=== PATIENT | male | born 1990 | race Caucasian/White ===

== ENCOUNTER 2020-11-24 13:40 | Inpatient (IN) | payer BC ==
--- NOTE | 2020-11-24 14:03 | EDM.PDOC ---
ED HPI GENERAL MEDICAL PROBLEM - General Chief Complaint: Respiratory Problem Stated Complaint: COVID+/VOMITING/UNABLE TO URINATE Time Seen by Provider: 11/24/20 13:57 - History of Present Illness INITIAL COMMENTS - FREE TEXT/NARRATIVE: 29-year-old male presents the emergency room with suspected dehydration. Patient was diagnosed with Covid on Sunday he has been coughing and has had a significant decrease in appetite with associated nausea and vomiting for about a week now. He is no longer voiding. He thinks he has been having some low-grade fevers. Patient denies any significant past medical problems except for scolio sis. He is not on any routine medications. The patient works at home he believes he probably caught this from his that is doing better from the illness now that developed symptoms about a week prior to his symptoms starting. - Related Data Allergies Allergy/AdvReac Type Severity Reaction Status Date / Time No Known Allergies Allergy Verified 11/24/20 14:00 Home Meds: Home Meds . [No Known Home Meds] 11/24/20 [History] ED ROS GENERAL - Review of Systems Review Of Systems: See Below Constitutional: Reports: Fever, Malaise, Weakness, Fatigue. Denies: Chills HEENT: Reports: No Symptoms Respiratory: Reports: Cough. Denies: Shortness of Breath, Wheezing, Pleuritic Chest Pain, Sputum Cardiovascular: Denies: Chest Pain, Edema Endocrine: Reports: Fatigue GI/Abdominal: Reports: Nausea, Vomiting. Denies: Abdominal Pain, Constipation : Reports: No Symptoms Musculoskeletal: Reports: Other (He is achy all over) Skin: Reports: No Symptoms Neurological: Reports: No Symptoms Psychiatric: Reports: No Symptoms Hematologic/Lymphatic: Reports: No Symptoms Immunologic: Reports: No Symptoms ED EXAM, GENERAL - Physical Exam Exam: See Below Exam Limited By: No Limitations General Appearance: Alert, No Apparent Distress, Other (He has a frequent cough O2 saturation is between 91 and 95%) Eye Exam: Bilateral Eye: Normal Inspection Ears: Normal External Exam, Normal Canal, Hearing Grossly Normal, Normal TMs Nose: Normal Inspection, Normal Mucosa, No Blood Throat/Mouth: Normal Inspection, Normal Lips, Normal Teeth, Normal Gums, Normal Oropharynx, Normal Voice, No Airway Compromise Head: Atraumatic, Normocephalic Neck: Normal Inspection, Supple, Non-Tender. No: Lymphadenopathy (L), Lymphadenopathy (R) Respiratory/Chest: No Respiratory Distress, Crackles (He has a few crackles noted anteriorly deep breathing triggers his cough) Cardiovascular: Regular Rate, Rhythm, No Edema, No Murmur GI/Abdominal: Normal Bowel Sounds, Soft, Other (Vague discomfort with palpation no rigidity rebound or guarding appreciated) Back Exam: Other (Large well-healed incision from his scoliosis surgery). No: CVA Tenderness (L), CVA Tenderness (R) Extremities: No Pedal Edema Neurological: Alert, Oriented, Normal Cognition Course - Vital Signs Last Recorded V/S: Last Vital Signs Temp 38.1 C 11/24/20 13:55 Pulse 96 11/24/20 13:55 Resp 20 11/24/20 13:55 BP 139/80 11/24/20 13:55 Pulse Ox 92 L 11/24/20 13:55 - Orders/Labs/Meds Orders: Active Orders 24 hr Category Date Time Status CULTURE BLOOD [BC] Stat Lab 11/24/20 14:30 Received CULTURE BLOOD [BC] Stat Lab 11/24/20 14:37 Received Lactated Ringers [Ringers, Lactated] 1,000 ml Med 11/24/20 16:15 Active IV ASDIRECTED Blood Culture x2 Reflex Set [OM.PC] Stat Oth 11/24/20 14:05 Ordered Medication Orders Lactated Ringer's (Ringers, Lactated) 1,000 mls @ 75 mls/hr IV ASDIRECTED CHANDNI Labs: Laboratory Tests 11/24/20 11/24/20 11/24/20 Range/Units 14:04 14:10 14:10 WBC 5.56 (4.23-9.07) K/mm3 RBC 5.37 (4.63-6.08) M/mm3 Hgb 15.6 (13.7-17.5) gm/dl Hct 45.3 (40.1-51.0) % MCV 84.4 (79.0-92.2) fl MCH 29.1 (25.7-32.2) pg MCHC 34.4 (32.2-35.5) g/dl RDW Std Deviation 39.3 (35.1-43.9) fL Plt Count 127 L (163-337) K/mm3 MPV 10.8 (9.4-12.3) fl Neutrophils % (Manual) 65 H (40-60) % Band Neutrophils % 0 (0-10) % Lymphocytes % (Manual) 26 (20-40) % Atypical Lymphs % 0 % Monocytes % (Manual) 7 (2-10) % Eosinophils % (Manual) 0 L (0.8-7.0) % Basophils % (Manual) 0 L (0.2-1.2) Metamyelocytes % 2 Platelet Estimate Adequate RBC Morph Comment Normal D-Dimer, Quantitative (0.19-0.50) mg/L Sodium 138 (136-145) mEq/L Potassium 3.2 L (3.5-5.1) mEq/L Chloride 98 (98-107) mEq/L Carbon Dioxide 29 (21-32) mEq/L Anion Gap 14.2 (5-15) BUN 14 (7-18) mg/dL Creatinine 1.2 (0.7-1.3) mg/dL Est Cr Clr Drug Dosing 83.39 mL/min Estimated GFR (MDRD) > 60 (>60) mL/min BUN/Creatinine Ratio 11.7 L (14-18) Glucose 88 (70-99) mg/dL Lactic Acid (0.4-2.0) mmol/L Calcium 7.7 L (8.5-10.1) mg/dL Ferritin 1909 H (26-388) ng/ml Total Bilirubin 0.8 (0.2-1.0) mg/dL AST 39 H (15-37) U/L ALT 37 (16-63) U/L Alkaline Phosphatase 58 (46-116) U/L C-Reactive Protein 5.7 H* (<1.0) mg/dL Total Protein 7.4 (6.4-8.2) g/dl Albumin 3.6 (3.4-5.0) g/dl Globulin 3.8 gm/dL Albumin/Globulin Ratio 1.0 (1-2) 11/24/20 11/24/20 Range/Units 14:10 15:17 WBC (4.23-9.07) K/mm3 RBC (4.63-6.08) M/mm3 Hgb (13.7-17.5) gm/dl Hct (40.1-51.0) % MCV (79.0-92.2) fl MCH (25.7-32.2) pg MCHC (32.2-35.5) g/dl RDW Std Deviation (35.1-43.9) fL Plt Count (163-337) K/mm3 MPV (9.4-12.3) fl Neutrophils % (Manual) (40-60) % Band Neutrophils % (0-10) % Lymphocytes % (Manual) (20-40) % Atypical Lymphs % % Monocytes % (Manual) (2-10) % Eosinophils % (Manual) (0.8-7.0) % Basophils % (Manual) (0.2-1.2) Metamyelocytes % Platelet Estimate RBC Morph Comment D-Dimer, Quantitative 0.42 (0.19-0.50) mg/L Sodium (136-145) mEq/L Potassium (3.5-5.1) mEq/L Chloride (98-107) mEq/L Carbon Dioxide (21-32) mEq/L Anion Gap (5-15) BUN (7-18) mg/dL Creatinine (0.7-1.3) mg/dL Est Cr Clr Drug Dosing mL/min Estimated GFR (MDRD) (>60) mL/min BUN/Creatinine Ratio (14-18) Glucose (70-99) mg/dL Lactic Acid 1.3 (0.4-2.0) mmol/L Calcium (8.5-10.1) mg/dL Ferritin (26-388) ng/ml Total Bilirubin (0.2-1.0) mg/dL AST (15-37) U/L ALT (16-63) U/L Alkaline Phosphatase (46-116) U/L C-Reactive Protein (<1.0) mg/dL Total Protein (6.4-8.2) g/dl Albumin (3.4-5.0) g/dl Globulin gm/dL Albumin/Globulin Ratio (1-2) Meds: Medications Generic Name Dose Route Start Last Admin Trade Name Freq PRN Reason Stop Dose Admin Lactated Ringer's 1,000 mls @ 75 mls/hr 11/24/20 16:15 Ringers, Lactated IV ASDIRECTED CHANDNI Discontinued Medications Generic Name Dose Route Start Last Admin Trade Name Freq PRN Reason Stop Dose Admin Lactated Ringer's 500 mls @ 500 mls/hr 11/24/20 14:26 11/24/20 15:40 Ringers, Lactated IV 11/24/20 15:25 75 mls/hr .BOLUS ONE Infusion Potassium Chloride 40 meq 11/24/20 16:07 11/24/20 16:16 Potassium Chloride 20 Meq Tab.Er PO 11/24/20 16:08 40 meq ONETIME ONE Administration - Re-Assessments/Exams Free Text/Narrative Re-Assessment/Exam: 11/24/20 16:32 The patient was watched for while awaiting labs and his sats dropped into the upper 80s 87-88% range and then come back up and then come back down. Patient was placed on supplemental oxygen and feels much better with this. I discussed the situation with Dr. Zamorano our hospitalist who kindly will accept the patient will continue the fluids at 75 cc an hour. His lactic acid was 1.3. Albeit the patient met sepsis criteria the acute situation was thought to be some dehydration due to the Covid infection and thus was not aggressively treated with fluids. I am concerned about this patient as he has some restrictive lung disease with his scoliosis. Departure - Departure Time of Disposition: 16:31 Disposition: Admitted As Inpatient 64 Clinical Impression: COVID-19, Pneumonia due to 2019 novel coronavirus, Hypoxia - Discharge Information Referrals: PCP,None [Primary Care Provider] - Forms: ED Department Discharge Sepsis Event Note (ED) - Focused Exam Vital Signs: Vital Signs Temp Pulse Resp BP Pulse Ox 11/24/20 13:55 38.1 C 96 20 139/80 92 L - My Orders Last 24 Hours: My Active Orders 11/24/20 14:05 Blood Culture x2 Reflex Set [OM.PC] Stat 11/24/20 14:30 CULTURE BLOOD [BC] Stat 11/24/20 14:37 CULTURE BLOOD [BC] Stat 11/24/20 16:15 Lactated Ringers [Ringers, Lactated] 1,000 ml IV ASDIRECTED - Assessment/Plan Last 24 Hours: My Active Orders 11/24/20 14:05 Blood Culture x2 Reflex Set [OM.PC] Stat 11/24/20 14:30 CULTURE BLOOD [BC] Stat 11/24/20 14:37 CULTURE BLOOD [BC] Stat 11/24/20 16:15 Lactated Ringers [Ringers, Lactated] 1,000 ml IV ASDIRECTED
[2020-11-24] MEDS ORDERED: Lactated Ringers 500 ML IV ONE (14:26)
--- NOTE | 2020-11-24 14:41 | CR ---
Chest: Portable view of the chest was obtained. Comparison: No prior chest imaging is available. Heart size and mediastinum are within normal limits for portable technique. Scoliosis fixation rods are present. Patchy areas of increased density are seen on both sides of the chest. Impression: 1. Patchy areas of increased density on both sides of the chest compatible with diffuse Covid pneumonia. 2. Scoliosis fixation rods. Diagnostic code #3
[2020-11-24] MEDS ORDERED: Potassium Chloride 20 MEQ Tab.ER PO ONE (16:07)
[2020-11-24] MEDS ORDERED: Lactated Ringers 1,000 ML IV SCH (16:15)
[2020-11-24] MEDS ORDERED: Acetaminophen 325 MG Tab PO PRN (17:12)
[2020-11-24] MEDS ORDERED: Promethazine 12.5 MG in Sodium Chloride 0.9% 50 ML IV PRN (17:12)
[2020-11-24] MEDS ORDERED: Albuterol/Ipratropium 3.0-0.5 MG/3 ML Neb Soln NEB PRN (17:12)
[2020-11-24] MEDS ORDERED: Morphine 2 MG/ML SYRINGE IVPUSH PRN (17:12)
[2020-11-24] MEDS ORDERED: REMDESIVIR 200 MG in Sodium Chloride 0.9% 250 ML IV ONE ×2 (17:19→18:15)
[2020-11-24] MEDS ORDERED: traMADol 50 MG Tab PO PRN (17:23)
[2020-11-24] MEDS ORDERED: hydrALAZINE 20 MG/ML SDV IVPUSH PRN (17:23)
[2020-11-24] MEDS ORDERED: cefTRIAXone 2 GM in Sodium Chloride 0.9% 100 ML IV SCH (17:30)
[2020-11-24] MEDS ORDERED: NS + KCl 20mEq/L 1,000 ML IV SCH (17:30)
--- NOTE | 2020-11-24 17:34 | PCM.HP.2 ---
H&P History of Present Illness - General Date of Service: 11/24/20 Admit Problem/Dx: Admission Diagnosis/Problem Admission Diagnosis/Problem Hypoxia Source of Information: Patient, Other (Chart) - History of Present Illness Initial Comments - Free Text/Narative: Patient is a 29-year-old male without a significant the past medical history who presented to the ER with cough and shortness of breath. he has been having poor appetite, nausea, vomiting and malaise for about a week. Patient had a positive COVID-19 test on Sunday. His had a positive COVID-19 tested recently. In the ER, he was found to have low oxygen desaturation 87 to 88%. he has a low urine output. Normal saline bolus of 500 cc was given in the ER. Chest x-ray was performed showing bilateral infiltrates compatible with the Covid pneumonia. - Related Data Allergies/Adverse Reactions: Allergies Allergy/AdvReac Type Severity Reaction Status Date / Time No Known Allergies Allergy Verified 11/24/20 14:00 Home Medications: Home Meds . [No Known Home Meds] 11/24/20 [History] Past Medical History HEENT History: Reports: Impaired Vision Respiratory History: Reports: Other (See Below) Other Respiratory History: partially collapsed lung r/t scoliosis Genitourinary History: Reports: Renal Calculus Musculoskeletal History: Reports: Other (See Below) Other Musculoskeletal History: scholiosis - Infectious Disease History Infectious Disease History: Reports: Chicken Pox, Novel Coronavirus - Past Surgical History HEENT Surgical History: Reports: Oral Surgery Musculoskeletal Surgical History: Reports: Other (See Below) Other Musculoskeletal Surgeries/Procedures:: spinal fusion (2000) Social & Family History - Family History Family Medical History: No Pertinent Family History (Denies genetic diseases in family) - Tobacco Use Tobacco Use Status *Q: Never Tobacco User Second Hand Smoke Exposure: No - Caffeine Use Caffeine Use: Reports: None - Recreational Drug Use Recreational Drug Use: No H&P Review of Systems - Review of Systems: Review Of Systems: See Below General: Reports: Malaise HEENT: Reports: No Symptoms Pulmonary: Reports: Shortness of Breath, Cough Cardiovascular: Reports: No Symptoms Gastrointestinal: Reports: Nausea, Vomiting Genitourinary: Reports: Other (Low urine output) Musculoskeletal: Reports: No Symptoms Skin: Reports: No Symptoms Psychiatric: Reports: No Symptoms Neurological: Reports: No Symptoms Hematologic/Lymphatic: Reports: No Symptoms Immunologic: Reports: No Symptoms Exam - Exam Exam: See Below - Vital Signs Vital Signs: Last Vital Signs Temp 38.3 C H 11/24/20 17:00 Pulse 88 11/24/20 17:00 Resp 20 11/24/20 17:00 BP 114/73 11/24/20 17:00 Pulse Ox 96 11/24/20 17:00 Weight: 95.118 kg - Exam General: Alert, Oriented, Cooperative HEENT: Conjunctiva Clear, EOMI, Pupils Equal, Pupils Reactive Neck: Supple, +2 Carotid Pulse wo Bruit, Full Range of Motion Lungs: Crackles (Bibasilar) Cardiovascular: Regular Rate, Regular Rhythm, Normal S1, Normal S2 GI/Abdominal Exam: Normal Bowel Sounds, Soft, Non-Tender, No Organomegaly Back Exam: Other (Scoliosis) Extremities: Normal Inspection, Normal Range of Motion, Non-Tender, No Pedal Edema Skin: Warm, Dry, Intact Neurological: Strength Equal Bilateral, Normal Speech, Normal Tone, Sensation Intact Neuro Extensive - Mental Status: Alert, Oriented x3, Normal Mood/Affect Psychiatric: Normal Affect, Normal Mood - Patient Data Lab Results Last 24 hrs: Laboratory Results - last 24 hr 11/24/20 11/24/20 11/24/20 Range/Units 14:04 14:10 14:10 WBC 5.56 (4.23-9.07) K/mm3 RBC 5.37 (4.63-6.08) M/mm3 Hgb 15.6 (13.7-17.5) gm/dl Hct 45.3 (40.1-51.0) % MCV 84.4 (79.0-92.2) fl MCH 29.1 (25.7-32.2) pg MCHC 34.4 (32.2-35.5) g/dl RDW Std Deviation 39.3 (35.1-43.9) fL Plt Count 127 L (163-337) K/mm3 MPV 10.8 (9.4-12.3) fl Neutrophils % (Manual) 65 H (40-60) % Band Neutrophils % 0 (0-10) % Lymphocytes % (Manual) 26 (20-40) % Atypical Lymphs % 0 % Monocytes % (Manual) 7 (2-10) % Eosinophils % (Manual) 0 L (0.8-7.0) % Basophils % (Manual) 0 L (0.2-1.2) Metamyelocytes % 2 Platelet Estimate Adequate RBC Morph Comment Normal D-Dimer, Quantitative (0.19-0.50) mg/L Sodium 138 (136-145) mEq/L Potassium 3.2 L (3.5-5.1) mEq/L Chloride 98 (98-107) mEq/L Carbon Dioxide 29 (21-32) mEq/L Anion Gap 14.2 (5-15) BUN 14 (7-18) mg/dL Creatinine 1.2 (0.7-1.3) mg/dL Est Cr Clr Drug Dosing 83.39 mL/min Estimated GFR (MDRD) > 60 (>60) mL/min BUN/Creatinine Ratio 11.7 L (14-18) Glucose 88 (70-99) mg/dL Lactic Acid (0.4-2.0) mmol/L Calcium 7.7 L (8.5-10.1) mg/dL Ferritin 1909 H (26-388) ng/ml Total Bilirubin 0.8 (0.2-1.0) mg/dL AST 39 H (15-37) U/L ALT 37 (16-63) U/L Alkaline Phosphatase 58 (46-116) U/L C-Reactive Protein 5.7 H* (<1.0) mg/dL Total Protein 7.4 (6.4-8.2) g/dl Albumin 3.6 (3.4-5.0) g/dl Globulin 3.8 gm/dL Albumin/Globulin Ratio 1.0 (1-2) 11/24/20 11/24/20 Range/Units 14:10 15:17 WBC (4.23-9.07) K/mm3 RBC (4.63-6.08) M/mm3 Hgb (13.7-17.5) gm/dl Hct (40.1-51.0) % MCV (79.0-92.2) fl MCH (25.7-32.2) pg MCHC (32.2-35.5) g/dl RDW Std Deviation (35.1-43.9) fL Plt Count (163-337) K/mm3 MPV (9.4-12.3) fl Neutrophils % (Manual) (40-60) % Band Neutrophils % (0-10) % Lymphocytes % (Manual) (20-40) % Atypical Lymphs % % Monocytes % (Manual) (2-10) % Eosinophils % (Manual) (0.8-7.0) % Basophils % (Manual) (0.2-1.2) Metamyelocytes % Platelet Estimate RBC Morph Comment D-Dimer, Quantitative 0.42 (0.19-0.50) mg/L Sodium (136-145) mEq/L Potassium (3.5-5.1) mEq/L Chloride (98-107) mEq/L Carbon Dioxide (21-32) mEq/L Anion Gap (5-15) BUN (7-18) mg/dL Creatinine (0.7-1.3) mg/dL Est Cr Clr Drug Dosing mL/min Estimated GFR (MDRD) (>60) mL/min BUN/Creatinine Ratio (14-18) Glucose (70-99) mg/dL Lactic Acid 1.3 (0.4-2.0) mmol/L Calcium (8.5-10.1) mg/dL Ferritin (26-388) ng/ml Total Bilirubin (0.2-1.0) mg/dL AST (15-37) U/L ALT (16-63) U/L Alkaline Phosphatase (46-116) U/L C-Reactive Protein (<1.0) mg/dL Total Protein (6.4-8.2) g/dl Albumin (3.4-5.0) g/dl Globulin gm/dL Albumin/Globulin Ratio (1-2) Result Diagrams: 11/24/20 14:04 11/24/20 14:10 Sepsis Event Note - Evaluation Sepsis Screening Result: No Definite Risk - Focused Exam Vital Signs: Vital Signs Temp Pulse Resp BP Pulse Ox 11/24/20 17:00 38.3 C H 88 20 114/73 96 11/24/20 13:55 38.1 C 96 20 139/80 92 L Problem List Initiated/Reviewed/Updated: Yes Orders Last 24hrs: Active Orders 24 hr Category Date Time Status Patient Status [ADT] Stat ADT 11/24/20 16:42 Active Cardiac Monitoring [RC] CONTINUOUS Care 11/24/20 17:13 Ordered Intake and Output [RC] QSHIFT Care 11/24/20 17:13 Ordered Oxygen Therapy [RC] PRN Care 11/24/20 17:12 Ordered Pulse Oximetry [RC] CONTINUOUS Care 11/24/20 17:13 Ordered RT Aerosol Therapy [RC] ASDIRECTED Care 11/24/20 17:16 Ordered Up ad Cora [RC] ASDIRECTED Care 11/24/20 17:12 Ordered VTE/DVT Education [RC] PER UNIT ROUTINE Care 11/24/20 17:12 Ordered Vital Signs [RC] Q4H Care 11/24/20 17:12 Ordered Regular Diet [DIET] Diet 11/24/20 Dinner Ordered 25-HYDROXYVITAMIN D LCMS D2D3 [REF] Routine Lab 11/25/20 05:00 Ordered C-REACTIVE PROTEIN [CHEM] DAILY Lab 11/25/20 05:00 Ordered C-REACTIVE PROTEIN [CHEM] DAILY Lab 11/26/20 05:00 Ordered C-REACTIVE PROTEIN [CHEM] DAILY Lab 11/27/20 05:00 Ordered C-REACTIVE PROTEIN [CHEM] DAILY Lab 11/28/20 05:00 Ordered C-REACTIVE PROTEIN [CHEM] DAILY Lab 11/29/20 05:00 Ordered CBC WITH AUTO DIFF [HEME] DAILY Lab 11/25/20 05:00 Ordered CBC WITH AUTO DIFF [HEME] DAILY Lab 11/26/20 05:00 Ordered CBC WITH AUTO DIFF [HEME] DAILY Lab 11/27/20 05:00 Ordered CBC WITH AUTO DIFF [HEME] DAILY Lab 11/28/20 05:00 Ordered CBC WITH AUTO DIFF [HEME] DAILY Lab 11/29/20 05:00 Ordered COMPREHENSIVE METABOLIC PN,CMP [CHEM] DAILY Lab 11/25/20 05:00 Ordered COMPREHENSIVE METABOLIC PN,CMP [CHEM] DAILY Lab 11/26/20 05:00 Ordered COMPREHENSIVE METABOLIC PN,CMP [CHEM] DAILY Lab 11/27/20 05:00 Ordered COMPREHENSIVE METABOLIC PN,CMP [CHEM] DAILY Lab 11/28/20 05:00 Ordered COMPREHENSIVE METABOLIC PN,CMP [CHEM] DAILY Lab 11/29/20 05:00 Ordered CULTURE BLOOD [BC] Stat Lab 11/24/20 14:30 Received CULTURE BLOOD [BC] Stat Lab 11/24/20 14:37 Received CULTURE MRSA [RM] Stat Lab 11/24/20 17:12 Ordered CULTURE SPUTUM + SMEAR [RM] Stat Lab 11/24/20 17:12 Ordered MAGNESIUM [CHEM] Routine Lab 11/25/20 05:00 Ordered PHOSPHORUS [CHEM] Routine Lab 11/25/20 05:00 Ordered Acetaminophen [TylenoL] Med 11/24/20 17:12 Ordered 650 mg PO Q6H PRN Albuterol/Ipratropium [DuoNeb 3.0-0.5 MG/3 ML] Med 11/24/20 17:12 Ordered 3 ml NEB Q4H PRN Aspirin [Halfprin] Med 11/24/20 17:30 Ordered 81 mg PO DAILY Azithromycin [Zithromax] 500 mg Med 11/24/20 17:30 Ordered Sodium Chloride 0.9% [Normal Saline (AdvBag)] 250 ml IV Q24H Cholecalciferol (Vitamin D3) [Vitamin D3] Med 11/24/20 17:30 Ordered 5,000 unit PO DAILY Enoxaparin [Lovenox] Med 11/24/20 17:15 Ordered 40 mg SUBCUT DAILY Melatonin Med 11/24/20 21:00 Ordered 3 mg PO BEDTIME Morphine Med 11/24/20 17:12 Ordered 2 mg IVPUSH Q4H PRN Promethazine [Phenergan] 12.5 mg Med 11/24/20 17:12 Ordered Sodium Chloride 0.9% [Normal Saline] 50 ml IV Q6H Remdesivir 100 mg Med 11/25/20 17:30 Ordered Sodium Chloride 0.9% [Normal Saline] 100 ml IV Q24H Remdesivir 200 mg Med 11/24/20 17:19 Ordered Sodium Chloride 0.9% [Normal Saline] 250 ml IV ONETIME Sodium Chloride 0.9% with KCl 20 mEq @ 75 mL/Hr (1000 Med 11/24/20 17:30 Ordered mL) NS + KCl 20mEq/L [Normal Saline with 20 mEq KCl] 1,000 ml IV ASDIRECTED Zinc Sulfate [Zincate] Med 11/24/20 17:30 Ordered 220 mg PO DAILY cefTRIAXone [Rocephin] 2 gm Med 11/24/20 17:30 Ordered Sodium Chloride 0.9% [Normal Saline] 100 ml IV Q24H dexAMETHasone Med 11/24/20 17:30 Ordered 6 mg PO DAILY hydrALAZINE [Apresoline] Med 11/24/20 17:23 Ordered 10 mg IVPUSH Q4H PRN traMADol [Ultram] Med 11/24/20 17:23 Ordered 50 mg PO Q6H PRN Blood Culture x2 Reflex Set [OM.PC] Stat Oth 11/24/20 14:05 Ordered Medication Orders Acetaminophen (Acetaminophen 325 Mg Tab) 650 mg PO Q6H PRN PRN Reason: Pain (Mild 1-3)/fever Albuterol/Ipratropium (Albuterol/Ipratropium 3.0-0.5 Mg/3 Ml Neb Soln) 3 ml NEB Q4H PRN PRN Reason: Shortness Of Breath/wheezing Aspirin (Aspirin 81 Mg Tab.Ec) 81 mg PO DAILY [facility] Cholecalciferol (Cholecalciferol (Vitamin D3) 5,000 Unit Cap) 5,000 unit PO DAILY [facility] Dexamethasone (Dexamethasone 4 Mg Tab) 6 mg PO DAILY [facility] Enoxaparin Sodium (Enoxaparin 40 Mg/0.4 Ml Syringe) 40 mg SUBCUT DAILY [facility] Hydralazine HCl (Hydralazine 20 Mg/Ml Sdv) 10 mg IVPUSH Q4H PRN PRN Reason: Hypertension Promethazine HCl 12.5 mg/ (Sodium Chloride) 50.5 mls @ 100 mls/hr IV Q6H PRN PRN Reason: Nausea/Vomiting Remdesivir 200 mg/ Sodium (Chloride) 250 mls @ 250 mls/hr IV ONETIME ONE Stop: 11/24/20 17:20 Remdesivir 100 mg/ Sodium (Chloride) 100 mls @ 100 mls/hr IV Q24H [facility] Stop: 11/28/20 18:29 Potassium Chloride/Sodium Chloride (Normal Saline With 20 Meq Kcl) 1,000 mls @ 75 mls/hr IV ASDIRECTED [facility] Ceftriaxone Sodium 2 gm/ (Sodium Chloride) 100 mls @ 200 mls/hr IV Q24H [facility] Azithromycin 500 mg/ Sodium (Chloride) 250 mls @ 250 mls/hr IV Q24H [facility] Melatonin (Melatonin 3 Mg Tab) 3 mg PO BEDTIME [facility] Morphine Sulfate (Morphine 2 Mg/Ml Syringe) 2 mg IVPUSH Q4H PRN PRN Reason: Pain (severe 7-10) Stop: 11/25/20 17:15 Tramadol HCl (Tramadol 50 Mg Tab) 50 mg PO Q6H PRN PRN Reason: Pain (moderate 4-6) Zinc Sulfate (Zinc Sulfate 220 Mg Cap) 220 mg PO DAILY [facility] Assessment/Plan Comment:: Patient is a 29-year-old male without a significant the past medical history who presented to the ER with cough and shortness of breath. he has been having poor appetite, nausea, vomiting and malaise for about a week. Patient had a positive COVID-19 test on Sunday. Assessment: Acute hypoxic respiratory failure scoliosis -Etiology could be pneumonia. Restrictive ventilation due to scoliosis can contribute to hypoxia. -Pulse ox -Oxygen therapy, high flow/as needed to keep oxygen saturation greater than 92% Pneumonia, Covid 19 or CAP -CXR - patchy areas of increased density on both sides of the chest compatible with diffuse covid pneumonia -Covid 19 test positive 3 days ago (11/22) -Symptoms started 1 week ago -Ferritin 1909, D-dimer negative 0.42, CRP 5.7 on admission Dehydration -Low urine output -Creatinine 1.2 Thrombocytopenia -Etiology unknown -127 on admission -No evidence of bleeding Electrolytes imbalance -Potassium 3.2 -Replace and repeat it Elevation of liver enzymes -Could be due to infection with COVID-19 -AST 39, TBil 0.8, Alphos 58 Plan: 1. Will be admitted to telemetry as an inpatient 2. RT to oxygen to keep saturations greater than 92% Continue incentive spirometry and A[place]ella Dietitian consult regarding nutritional needs PT/OT to eval and treat and increase activity Prone positioning Continue Rocephin, Zithromax and dexamethasone 6mg po daily Remdesivir 200mg iv x 1 and then 100mg iv daily x 4. Monitor electrolytes. replace and repeat it if ncessary Continue to trend labs including D-dimer, CRP, and liver functions environmental services director for discharge planning Monitor blood sugars as patient is on dexamethasone 6 mg daily D-dimer is negative. So I would not like to initiate anticoagulation. Instead I will put the patient on aspirin. 3. 500 cc bolus was given in the ER. Continue normal saline 75 cc/h. Intake and output. Repeat renal function in morning 4. Repeat platelets in the morning 5. Repeat liver function in morning 6. Patient does not have diabetes but I would like to put patient on insulin sliding scale since the patient is on dexamethasone. 7. DVT prophylaxis: Lovenox Deposition: Patient may need around 4 days in the hospital due to the nature of the Covid pneumonia - Mortality Measure Prognosis:: Good
[2020-11-24] MEDS: Enoxaparin 40 MG/0.4 ML Syringe SUBCUT SCH (17:35)
[2020-11-24] MEDS ORDERED: Azithromycin 500 MG in Sodium Chloride 0.9% 250 ML IV SCH (18:00)
[2020-11-24] MEDS: Cholecalciferol (Vitamin D3) 5,000 UNIT Cap PO SCH (18:28)
[2020-11-24] MEDS: Dexamethasone 4 MG Tab PO SCH (18:28)
[2020-11-24] MEDS: Aspirin 81 MG Tab.EC PO SCH (18:28)
[2020-11-24] MEDS: Zinc Sulfate 220 MG Cap PO SCH (18:29)
[2020-11-24] MEDS: cefTRIAXone 2 GM in Sodium Chloride 0.9% 100 ML IV SCH ×2 (19:54→22:09)
[2020-11-24] MEDS: Azithromycin 500 MG in Sodium Chloride 0.9% 250 ML IV SCH ×2 (20:30→22:42)
[2020-11-24] MEDS: Melatonin 3 MG Tab PO SCH (20:34)
[2020-11-25] MEDS ORDERED: Calcium Gluconate 10% 1 GM/10 ML SDV IV ONE (08:27)
[2020-11-25] MEDS: Enoxaparin 40 MG/0.4 ML Syringe SUBCUT SCH (10:09)
[2020-11-25] MEDS: Dexamethasone 4 MG Tab PO SCH (10:10)
[2020-11-25] MEDS: Cholecalciferol (Vitamin D3) 5,000 UNIT Cap PO SCH (10:10)
[2020-11-25] MEDS: Zinc Sulfate 220 MG Cap PO SCH (10:11)
[2020-11-25] MEDS: Aspirin 81 MG Tab.EC PO SCH (10:11)
--- NOTE | 2020-11-25 11:19 | PCM.PN ---
- General Info Date of Service: 11/25/20 Admission Dx/Problem (Free Text): Admission Diagnosis/Problem Admission Diagnosis/Problem Hypoxia Subjective Update: Patient is a 29-year-old male without a significant the past medical history who presented to the ER with cough and shortness of breath. he has been having poor appetite, nausea, vomiting and malaise for about a week. Patient had a positive COVID-19 test on Sunday. Patient feels better, less shortness of breath. But he complains of both diarrhea, watery bowel movements x 2 last night. Denies nausea, vomiting, or abdominal pain. He is now on room air. He was on 1 L last night. WBC 2.67, platelets of 124 Potassium 4.8, creatinine 1.1 Lactic acid 1.3 MRSA screen negative CRP 7.0 AST 29 - Review of Systems Systems Review Comment:: General: Reports: Malaise HEENT: Reports: No Symptoms Pulmonary: Reports: Shortness of Breath, Cough Cardiovascular: Reports: No Symptoms Gastrointestinal: Reports: Nausea, Vomiting Genitourinary: Reports: Other (Low urine output) Musculoskeletal: Reports: No Symptoms Skin: Reports: No Symptoms Psychiatric: Reports: No Symptoms Neurological: Reports: No Symptoms Hematologic/Lymphatic: Reports: No Symptoms Immunologic: Reports: No Symptoms - Patient Data Vitals - Most Recent: Last Vital Signs Temp 36.6 C 11/25/20 08:21 Pulse 76 11/25/20 08:21 Resp 20 11/25/20 08:21 BP 116/88 11/25/20 08:21 Pulse Ox 93 L 11/25/20 10:57 Weight - Most Recent: 94.755 kg I&O - Last 24 Hours: Intake & Output 11/24/20 11/25/20 11/25/20 22:59 06:59 14:59 Intake Total 1690 Output Total 600 Balance 1090 Lab Results Last 24 Hours: Laboratory Results - last 24 hr 11/24/20 11/24/20 11/24/20 Range/Units 14:04 14:10 14:10 WBC 5.56 (4.23-9.07) K/mm3 RBC 5.37 (4.63-6.08) M/mm3 Hgb 15.6 (13.7-17.5) gm/dl Hct 45.3 (40.1-51.0) % MCV 84.4 (79.0-92.2) fl MCH 29.1 (25.7-32.2) pg MCHC 34.4 (32.2-35.5) g/dl RDW Std Deviation 39.3 (35.1-43.9) fL Plt Count 127 L (163-337) K/mm3 MPV 10.8 (9.4-12.3) fl Neut % (Auto) (34.0-67.9) % Lymph % (Auto) (21.8-53.1) % [place] % (Auto) (5.3-12.2) % Eos % (Auto) (0.8-7.0) Baso % (Auto) (0.1-1.2) % Neut # (Auto) (1.78-5.38) K/mm3 Lymph # (Auto) (1.32-3.57) K/mm3 [place] # (Auto) (0.30-0.82) K/mm3 Eos # (Auto) (0.04-0.54) K/mm3 Baso # (Auto) (0.01-0.08) K/mm3 Neutrophils % (Manual) 65 H (40-60) % Band Neutrophils % 0 (0-10) % Lymphocytes % (Manual) 26 (20-40) % Atypical Lymphs % 0 % Monocytes % (Manual) 7 (2-10) % Eosinophils % (Manual) 0 L (0.8-7.0) % Basophils % (Manual) 0 L (0.2-1.2) Metamyelocytes % 2 Manual Slide Review Platelet Estimate Adequate RBC Morph Comment Normal D-Dimer, Quantitative (0.19-0.50) mg/L Sodium 138 (136-145) mEq/L Potassium 3.2 L (3.5-5.1) mEq/L Chloride 98 (98-107) mEq/L Carbon Dioxide 29 (21-32) mEq/L Anion Gap 14.2 (5-15) BUN 14 (7-18) mg/dL Creatinine 1.2 (0.7-1.3) mg/dL Est Cr Clr Drug Dosing 83.39 mL/min Estimated GFR (MDRD) > 60 (>60) mL/min BUN/Creatinine Ratio 11.7 L (14-18) Glucose 88 (70-99) mg/dL Lactic Acid (0.4-2.0) mmol/L Calcium 7.7 L (8.5-10.1) mg/dL Phosphorus (2.6-4.7) mg/dL Magnesium (1.8-2.4) mg/dL Ferritin 1909 H (26-388) ng/ml Total Bilirubin 0.8 (0.2-1.0) mg/dL AST 39 H (15-37) U/L ALT 37 (16-63) U/L Alkaline Phosphatase 58 (46-116) U/L C-Reactive Protein 5.7 H* (<1.0) mg/dL Total Protein 7.4 (6.4-8.2) g/dl Albumin 3.6 (3.4-5.0) g/dl Globulin 3.8 gm/dL Albumin/Globulin Ratio 1.0 (1-2) MRSA (PCR) 11/24/20 11/24/20 11/24/20 Range/Units 14:10 15:17 19:59 WBC (4.23-9.07) K/mm3 RBC (4.63-6.08) M/mm3 Hgb (13.7-17.5) gm/dl Hct (40.1-51.0) % MCV (79.0-92.2) fl MCH (25.7-32.2) pg MCHC (32.2-35.5) g/dl RDW Std Deviation (35.1-43.9) fL Plt Count (163-337) K/mm3 MPV (9.4-12.3) fl Neut % (Auto) (34.0-67.9) % Lymph % (Auto) (21.8-53.1) % [place] % (Auto) (5.3-12.2) % Eos % (Auto) (0.8-7.0) Baso % (Auto) (0.1-1.2) % Neut # (Auto) (1.78-5.38) K/mm3 Lymph # (Auto) (1.32-3.57) K/mm3 [place] # (Auto) (0.30-0.82) K/mm3 Eos # (Auto) (0.04-0.54) K/mm3 Baso # (Auto) (0.01-0.08) K/mm3 Neutrophils % (Manual) (40-60) % Band Neutrophils % (0-10) % Lymphocytes % (Manual) (20-40) % Atypical Lymphs % % Monocytes % (Manual) (2-10) % Eosinophils % (Manual) (0.8-7.0) % Basophils % (Manual) (0.2-1.2) Metamyelocytes % Manual Slide Review Platelet Estimate RBC Morph Comment D-Dimer, Quantitative 0.42 (0.19-0.50) mg/L Sodium (136-145) mEq/L Potassium (3.5-5.1) mEq/L Chloride (98-107) mEq/L Carbon Dioxide (21-32) mEq/L Anion Gap (5-15) BUN (7-18) mg/dL Creatinine (0.7-1.3) mg/dL Est Cr Clr Drug Dosing mL/min Estimated GFR (MDRD) (>60) mL/min BUN/Creatinine Ratio (14-18) Glucose (70-99) mg/dL Lactic Acid 1.3 (0.4-2.0) mmol/L Calcium (8.5-10.1) mg/dL Phosphorus (2.6-4.7) mg/dL Magnesium (1.8-2.4) mg/dL Ferritin (26-388) ng/ml Total Bilirubin (0.2-1.0) mg/dL AST (15-37) U/L ALT (16-63) U/L Alkaline Phosphatase (46-116) U/L C-Reactive Protein (<1.0) mg/dL Total Protein (6.4-8.2) g/dl Albumin (3.4-5.0) g/dl Globulin gm/dL Albumin/Globulin Ratio (1-2) MRSA (PCR) Negative 11/25/20 11/25/20 Range/Units 05:22 05:22 WBC 2.67 L (4.23-9.07) K/mm3 RBC 5.22 (4.63-6.08) M/mm3 Hgb 14.9 (13.7-17.5) gm/dl Hct 44.5 (40.1-51.0) % MCV 85.2 (79.0-92.2) fl MCH 28.5 (25.7-32.2) pg MCHC 33.5 (32.2-35.5) g/dl RDW Std Deviation 39.0 (35.1-43.9) fL Plt Count 124 L (163-337) K/mm3 MPV 10.9 (9.4-12.3) fl Neut % (Auto) 66.6 (34.0-67.9) % Lymph % (Auto) 25.5 (21.8-53.1) % [place] % (Auto) 6.4 (5.3-12.2) % Eos % (Auto) 0 L (0.8-7.0) Baso % (Auto) 0.4 (0.1-1.2) % Neut # (Auto) 1.78 (1.78-5.38) K/mm3 Lymph # (Auto) 0.68 L (1.32-3.57) K/mm3 [place] # (Auto) 0.17 L (0.30-0.82) K/mm3 Eos # (Auto) 0.00 L (0.04-0.54) K/mm3 Baso # (Auto) 0.01 (0.01-0.08) K/mm3 Neutrophils % (Manual) (40-60) % Band Neutrophils % (0-10) % Lymphocytes % (Manual) (20-40) % Atypical Lymphs % % Monocytes % (Manual) (2-10) % Eosinophils % (Manual) (0.8-7.0) % Basophils % (Manual) (0.2-1.2) Metamyelocytes % Manual Slide Review Abnormal smear Platelet Estimate RBC Morph Comment D-Dimer, Quantitative (0.19-0.50) mg/L Sodium 141 (136-145) mEq/L Potassium 4.8 D (3.5-5.1) mEq/L Chloride 103 (98-107) mEq/L Carbon Dioxide 29 (21-32) mEq/L Anion Gap 13.8 (5-15) BUN 15 (7-18) mg/dL Creatinine 1.1 (0.7-1.3) mg/dL Est Cr Clr Drug Dosing 90.97 mL/min Estimated GFR (MDRD) > 60 (>60) mL/min BUN/Creatinine Ratio 13.6 L (14-18) Glucose 117 H (70-99) mg/dL Lactic Acid (0.4-2.0) mmol/L Calcium 7.5 L (8.5-10.1) mg/dL Phosphorus 3.7 (2.6-4.7) mg/dL Magnesium 2.1 (1.8-2.4) mg/dL Ferritin (26-388) ng/ml Total Bilirubin 0.5 (0.2-1.0) mg/dL AST 29 (15-37) U/L ALT 32 (16-63) U/L Alkaline Phosphatase 46 (46-116) U/L C-Reactive Protein 7.0 H* (<1.0) mg/dL Total Protein 6.9 (6.4-8.2) g/dl Albumin 3.2 L (3.4-5.0) g/dl Globulin 3.7 gm/dL Albumin/Globulin Ratio 0.9 L (1-2) MRSA (PCR) Gamal Results Last 24 Hours: Microbiology 11/24/20 19:32 Gram Stain - Preliminary Sputum - Expectorated Sputum Culture - Preliminary Med Orders - Current: Current Medications Acetaminophen (Acetaminophen 325 Mg Tab) 650 mg PO Q6H PRN PRN Reason: Pain (Mild 1-3)/fever Albuterol/Ipratropium (Albuterol/Ipratropium 3.0-0.5 Mg/3 Ml Neb Soln) 3 ml NEB Q4H PRN PRN Reason: Shortness Of Breath/wheezing Aspirin (Aspirin 81 Mg Tab.Ec) 81 mg PO DAILY [facility] Last Admin: 11/25/20 10:11 Dose: 81 mg Documented by: Cholecalciferol (Cholecalciferol (Vitamin D3) 5,000 Unit Cap) 5,000 unit PO DAILY [facility] Last Admin: 11/25/20 10:10 Dose: 5,000 unit Documented by: Dexamethasone (Dexamethasone 4 Mg Tab) 6 mg PO DAILY [facility] Last Admin: 11/25/20 10:10 Dose: 6 mg Documented by: Enoxaparin Sodium (Enoxaparin 40 Mg/0.4 Ml Syringe) 40 mg SUBCUT DAILY [facility] Last Admin: 11/25/20 10:09 Dose: 40 mg Documented by: Hydralazine HCl (Hydralazine 20 Mg/Ml Sdv) 10 mg IVPUSH Q4H PRN PRN Reason: Hypertension Promethazine HCl 12.5 mg/ (Sodium Chloride) 50.5 mls @ 100 mls/hr IV Q6H PRN PRN Reason: Nausea/Vomiting Remdesivir 100 mg/ Sodium (Chloride) 100 mls @ 100 mls/hr IV Q24H [facility] Stop: 11/28/20 18:29 Azithromycin 500 mg/ Sodium (Chloride) 250 mls @ 250 mls/hr IV Q24H [facility] Last Admin: 11/24/20 22:42 Dose: 250 mls/hr Documented by: Ceftriaxone Sodium 2 gm/ (Sodium Chloride) 100 mls @ 200 mls/hr IV Q24H [facility] Last Admin: 11/24/20 22:09 Dose: 200 mls/hr Documented by: Melatonin (Melatonin 3 Mg Tab) 3 mg PO BEDTIME [facility] Last Admin: 11/24/20 20:34 Dose: Not Given Documented by: Morphine Sulfate (Morphine 2 Mg/Ml Syringe) 2 mg IVPUSH Q4H PRN PRN Reason: Pain (severe 7-10) Stop: 11/25/20 17:15 Tramadol HCl (Tramadol 50 Mg Tab) 50 mg PO Q6H PRN PRN Reason: Pain (moderate 4-6) Zinc Sulfate (Zinc Sulfate 220 Mg Cap) 220 mg PO DAILY [facility] Last Admin: 11/25/20 10:11 Dose: 220 mg Documented by: Discontinued Medications Lactated Ringer's (Ringers, Lactated) 500 mls @ 500 mls/hr IV .BOLUS ONE Stop: 11/24/20 15:25 Last Infusion: 11/24/20 15:40 Dose: 75 mls/hr Documented by: Lactated Ringer's (Ringers, Lactated) 1,000 mls @ 75 mls/hr IV ASDIRECTED [facility] Potassium Chloride/Sodium Chloride (Normal Saline With 20 Meq Kcl) 1,000 mls @ 75 mls/hr IV ASDIRECTED [facility] Last Admin: 11/25/20 00:31 Dose: 75 mls/hr Documented by: Ceftriaxone Sodium 2 gm/ (Sodium Chloride) 100 mls @ 200 mls/hr IV Q24H [facility] Last Admin: 11/24/20 23:06 Dose: Not Given Documented by: Azithromycin 500 mg/ Sodium (Chloride) 250 mls @ 250 mls/hr IV Q24H [facility] Last Admin: 11/24/20 23:06 Dose: Not Given Documented by: Remdesivir 200 mg/ Sodium (Chloride) 250 mls @ 250 mls/hr IV ONETIME ONE Stop: 11/24/20 19:14 Last Admin: 11/24/20 18:28 Dose: 250 mls/hr Documented by: Calcium Gluconate 1 gm/ Sodium (Chloride) 60 mls @ 240 mls/hr IV ONETIME ONE Stop: 11/25/20 09:44 Last Admin: 11/25/20 10:20 Dose: 240 mls/hr Documented by: Potassium Chloride (Potassium Chloride 20 Meq Tab.Er) 40 meq PO ONETIME ONE Stop: 11/24/20 16:08 Last Admin: 11/24/20 16:16 Dose: 40 meq Documented by: - Exam Physical Findings Comments:: General: Alert, Oriented, Cooperative HEENT: Conjunctiva Clear, EOMI, Pupils Equal, Pupils Reactive Neck: Supple, +2 Carotid Pulse wo Bruit, Full Range of Motion Lungs: Crackles (Bibasilar) Cardiovascular: Regular Rate, Regular Rhythm, Normal S1, Normal S2 GI/Abdominal Exam: Normal Bowel Sounds, Soft, Non-Tender, No Organomegaly Back Exam: Other (Scoliosis) Extremities: Normal Inspection, Normal Range of Motion, Non-Tender, No Pedal Edema Skin: Warm, Dry, Intact Neurological: Strength Equal Bilateral, Normal Speech, Normal Tone, Sensation Intact Neuro Extensive - Mental Status: Alert, Oriented x3, Normal Mood/Affect Psychiatric: Normal Affect, Normal Mood - Patient Data Lab Results Last 24 hrs: Laboratory Results - last 24 hr 11/24/20 11/24/20 11/24/20 Range/Units 14:04 14:10 14:10 WBC 5.56 (4.23-9.07) K/mm3 RBC 5.37 (4.63-6.08) M/mm3 Hgb 15.6 (13.7-17.5) gm/dl Hct 45.3 (40.1-51.0) % MCV 84.4 (79.0-92.2) fl MCH 29.1 (25.7-32.2) pg MCHC 34.4 (32.2-35.5) g/dl RDW Std Deviation 39.3 (35.1-43.9) fL Plt Count 127 L (163-337) K/mm3 MPV 10.8 (9.4-12.3) fl Neut % (Auto) (34.0-67.9) % Lymph % (Auto) (21.8-53.1) % [place] % (Auto) (5.3-12.2) % Eos % (Auto) (0.8-7.0) Baso % (Auto) (0.1-1.2) % Neut # (Auto) (1.78-5.38) K/mm3 Lymph # (Auto) (1.32-3.57) K/mm3 [place] # (Auto) (0.30-0.82) K/mm3 Eos # (Auto) (0.04-0.54) K/mm3 Baso # (Auto) (0.01-0.08) K/mm3 Neutrophils % (Manual) 65 H (40-60) % Band Neutrophils % 0 (0-10) % Lymphocytes % (Manual) 26 (20-40) % Atypical Lymphs % 0 % Monocytes % (Manual) 7 (2-10) % Eosinophils % (Manual) 0 L (0.8-7.0) % Basophils % (Manual) 0 L (0.2-1.2) Metamyelocytes % 2 Manual Slide Review Platelet Estimate Adequate RBC Morph Comment Normal D-Dimer, Quantitative (0.19-0.50) mg/L Sodium 138 (136-145) mEq/L Potassium 3.2 L (3.5-5.1) mEq/L Chloride 98 (98-107) mEq/L Carbon Dioxide 29 (21-32) mEq/L Anion Gap 14.2 (5-15) BUN 14 (7-18) mg/dL Creatinine 1.2 (0.7-1.3) mg/dL Est Cr Clr Drug Dosing 83.39 mL/min Estimated GFR (MDRD) > 60 (>60) mL/min BUN/Creatinine Ratio 11.7 L (14-18) Glucose 88 (70-99) mg/dL Lactic Acid (0.4-2.0) mmol/L Calcium 7.7 L (8.5-10.1) mg/dL Phosphorus (2.6-4.7) mg/dL Magnesium (1.8-2.4) mg/dL Ferritin 1909 H (26-388) ng/ml Total Bilirubin 0.8 (0.2-1.0) mg/dL AST 39 H (15-37) U/L ALT 37 (16-63) U/L Alkaline Phosphatase 58 (46-116) U/L C-Reactive Protein 5.7 H* (<1.0) mg/dL Total Protein 7.4 (6.4-8.2) g/dl Albumin 3.6 (3.4-5.0) g/dl Globulin 3.8 gm/dL Albumin/Globulin Ratio 1.0 (1-2) MRSA (PCR) 11/24/20 11/24/20 11/24/20 Range/Units 14:10 15:17 19:59 WBC (4.23-9.07) K/mm3 RBC (4.63-6.08) M/mm3 Hgb (13.7-17.5) gm/dl Hct (40.1-51.0) % MCV (79.0-92.2) fl MCH (25.7-32.2) pg MCHC (32.2-35.5) g/dl RDW Std Deviation (35.1-43.9) fL Plt Count (163-337) K/mm3 MPV (9.4-12.3) fl Neut % (Auto) (34.0-67.9) % Lymph % (Auto) (21.8-53.1) % [place] % (Auto) (5.3-12.2) % Eos % (Auto) (0.8-7.0) Baso % (Auto) (0.1-1.2) % Neut # (Auto) (1.78-5.38) K/mm3 Lymph # (Auto) (1.32-3.57) K/mm3 [place] # (Auto) (0.30-0.82) K/mm3 Eos # (Auto) (0.04-0.54) K/mm3 Baso # (Auto) (0.01-0.08) K/mm3 Neutrophils % (Manual) (40-60) % Band Neutrophils % (0-10) % Lymphocytes % (Manual) (20-40) % Atypical Lymphs % % Monocytes % (Manual) (2-10) % Eosinophils % (Manual) (0.8-7.0) % Basophils % (Manual) (0.2-1.2) Metamyelocytes % Manual Slide Review Platelet Estimate RBC Morph Comment D-Dimer, Quantitative 0.42 (0.19-0.50) mg/L Sodium (136-145) mEq/L Potassium (3.5-5.1) mEq/L Chloride (98-107) mEq/L Carbon Dioxide (21-32) mEq/L Anion Gap (5-15) BUN (7-18) mg/dL Creatinine (0.7-1.3) mg/dL Est Cr Clr Drug Dosing mL/min Estimated GFR (MDRD) (>60) mL/min BUN/Creatinine Ratio (14-18) Glucose (70-99) mg/dL Lactic Acid 1.3 (0.4-2.0) mmol/L Calcium (8.5-10.1) mg/dL Phosphorus (2.6-4.7) mg/dL Magnesium (1.8-2.4) mg/dL Ferritin (26-388) ng/ml Total Bilirubin (0.2-1.0) mg/dL AST (15-37) U/L ALT (16-63) U/L Alkaline Phosphatase (46-116) U/L C-Reactive Protein (<1.0) mg/dL Total Protein (6.4-8.2) g/dl Albumin (3.4-5.0) g/dl Globulin gm/dL Albumin/Globulin Ratio (1-2) MRSA (PCR) Negative 11/25/20 11/25/20 Range/Units 05:22 05:22 WBC 2.67 L (4.23-9.07) K/mm3 RBC 5.22 (4.63-6.08) M/mm3 Hgb 14.9 (13.7-17.5) gm/dl Hct 44.5 (40.1-51.0) % MCV 85.2 (79.0-92.2) fl MCH 28.5 (25.7-32.2) pg MCHC 33.5 (32.2-35.5) g/dl RDW Std Deviation 39.0 (35.1-43.9) fL Plt Count 124 L (163-337) K/mm3 MPV 10.9 (9.4-12.3) fl Neut % (Auto) 66.6 (34.0-67.9) % Lymph % (Auto) 25.5 (21.8-53.1) % [place] % (Auto) 6.4 (5.3-12.2) % Eos % (Auto) 0 L (0.8-7.0) Baso % (Auto) 0.4 (0.1-1.2) % Neut # (Auto) 1.78 (1.78-5.38) K/mm3 Lymph # (Auto) 0.68 L (1.32-3.57) K/mm3 [place] # (Auto) 0.17 L (0.30-0.82) K/mm3 Eos # (Auto) 0.00 L (0.04-0.54) K/mm3 Baso # (Auto) 0.01 (0.01-0.08) K/mm3 Neutrophils % (Manual) (40-60) % Band Neutrophils % (0-10) % Lymphocytes % (Manual) (20-40) % Atypical Lymphs % % Monocytes % (Manual) (2-10) % Eosinophils % (Manual) (0.8-7.0) % Basophils % (Manual) (0.2-1.2) Metamyelocytes % Manual Slide Review Abnormal smear Platelet Estimate RBC Morph Comment D-Dimer, Quantitative (0.19-0.50) mg/L Sodium 141 (136-145) mEq/L Potassium 4.8 D (3.5-5.1) mEq/L Chloride 103 (98-107) mEq/L Carbon Dioxide 29 (21-32) mEq/L Anion Gap 13.8 (5-15) BUN 15 (7-18) mg/dL Creatinine 1.1 (0.7-1.3) mg/dL Est Cr Clr Drug Dosing 90.97 mL/min Estimated GFR (MDRD) > 60 (>60) mL/min BUN/Creatinine Ratio 13.6 L (14-18) Glucose 117 H (70-99) mg/dL Lactic Acid (0.4-2.0) mmol/L Calcium 7.5 L (8.5-10.1) mg/dL Phosphorus 3.7 (2.6-4.7) mg/dL Magnesium 2.1 (1.8-2.4) mg/dL Ferritin (26-388) ng/ml Total Bilirubin 0.5 (0.2-1.0) mg/dL AST 29 (15-37) U/L ALT 32 (16-63) U/L Alkaline Phosphatase 46 (46-116) U/L C-Reactive Protein 7.0 H* (<1.0) mg/dL Total Protein 6.9 (6.4-8.2) g/dl Albumin 3.2 L (3.4-5.0) g/dl Globulin 3.7 gm/dL Albumin/Globulin Ratio 0.9 L (1-2) MRSA (PCR) Result Diagrams: 11/25/20 05:22 11/25/20 05:22 Gamal Results Last 24 hrs: Microbiology 11/24/20 19:32 Gram Stain - Preliminary Sputum - Expectorated Sputum Culture - Preliminary Sepsis Event Note - Evaluation Sepsis Screening Result: No Definite Risk - Focused Exam Vital Signs: Vital Signs Temp Pulse Resp BP Pulse Ox Pulse Ox 11/25/20 10:57 93 L 11/25/20 08:21 36.6 C 76 20 116/88 94 L 11/25/20 05:37 95 11/25/20 05:11 36.7 C 70 18 128/85 96 11/25/20 00:36 37.3 C 81 18 120/67 95 - Problem List Review Problem List Initiated/Reviewed/Updated: Yes - My Orders Last 24 Hours: My Active Orders 11/24/20 Dinner Regular Diet [DIET] 11/24/20 17:12 Oxygen Therapy [RC] PRN Up ad Cora [RC] ASDIRECTED VTE/DVT Education [RC] PER UNIT ROUTINE Vital Signs [RC] Q4H Acetaminophen [TylenoL] 650 mg PO Q6H PRN Albuterol/Ipratropium [DuoNeb 3.0-0.5 MG/3 ML] 3 ml NEB Q4H PRN Morphine 2 mg IVPUSH Q4H PRN Promethazine [Phenergan] 12.5 mg Sodium Chloride 0.9% [Normal Saline] 50 ml IV Q6H 11/24/20 17:13 Cardiac Monitoring [RC] CONTINUOUS Intake and Output [RC] 04,16 Pulse Oximetry [RC] CONTINUOUS 11/24/20 17:16 RT Aerosol Therapy [RC] ASDIRECTED 11/24/20 17:23 hydrALAZINE [Apresoline] 10 mg IVPUSH Q4H PRN traMADol [Ultram] 50 mg PO Q6H PRN 11/24/20 17:30 Aspirin [Halfprin] 81 mg PO DAILY Cholecalciferol (Vitamin D3) [Vitamin D3] 5,000 unit PO DAILY Enoxaparin [Lovenox] 40 mg SUBCUT DAILY Zinc Sulfate [Zincate] 220 mg PO DAILY dexAMETHasone 6 mg PO DAILY 11/24/20 17:54 Respiratory Care Assess and Treatment [CONS] Routine 11/24/20 19:17 Code Status [Resuscitation Status] Routine 11/24/20 19:32 CULTURE SPUTUM + SMEAR [RM] Stat 11/24/20 21:00 Melatonin 3 mg PO BEDTIME cefTRIAXone [Rocephin] 2 gm Sodium Chloride 0.9% [Normal Saline] 100 ml IV Q 24H 11/24/20 22:00 Azithromycin [Zithromax] 500 mg Sodium Chloride 0.9% [Normal Saline (AdvBag)] 250 ml IV Q24H 11/25/20 05:22 25-HYDROXYVITAMIN D LCMS D2D3 [REF] Routine 11/25/20 10:57 Acapella [RT Chest Physiotherapy] [RC] ASDIRECTED Incentive Spirometry [RT Incentive Spirometry] [RC] Q2HWA 11/25/20 17:30 Remdesivir 100 mg Sodium Chloride 0.9% [Normal Saline] 100 ml IV Q24H 11/26/20 05:00 C-REACTIVE PROTEIN [CHEM] DAILY CBC WITH AUTO DIFF [HEME] DAILY COMPREHENSIVE METABOLIC PN,CMP [CHEM] DAILY 11/27/20 05:00 C-REACTIVE PROTEIN [CHEM] DAILY CBC WITH AUTO DIFF [HEME] DAILY COMPREHENSIVE METABOLIC PN,CMP [CHEM] DAILY 11/28/20 05:00 C-REACTIVE PROTEIN [CHEM] DAILY CBC WITH AUTO DIFF [HEME] DAILY COMPREHENSIVE METABOLIC PN,CMP [CHEM] DAILY 11/29/20 05:00 C-REACTIVE PROTEIN [CHEM] DAILY CBC WITH AUTO DIFF [HEME] DAILY COMPREHENSIVE METABOLIC PN,CMP [CHEM] DAILY - Plan Plan:: Patient is a 29-year-old male without a significant the past medical history who presented to the ER with cough and shortness of breath. he has been having poor appetite, nausea, vomiting and malaise for about a week. Patient had a positive COVID-19 test on Sunday. Assessment: Acute hypoxic respiratory failure scoliosis -Etiology could be pneumonia. Restrictive ventilation due to scoliosis can contribute to hypoxia. -Pulse ox -Oxygen therapy, high flow/as needed to keep oxygen saturation greater than 92% Pneumonia, Covid 19 or CAP -CXR - patchy areas of increased density on both sides of the chest compatible with diffuse covid pneumonia -Covid 19 test positive on 11/22 -Symptoms started 1 week ago -Ferritin 1909, D-dimer negative 0.42, CRP 5.7 on admission Dehydration -Low urine output on admission, improved and -Creatinine 1.2 on admission Thrombocytopenia -Etiology unknown -127 on admission -No evidence of bleeding Electrolytes imbalance -Potassium 3.2 on admission -Replace and repeat it Elevation of liver enzymes -Could be due to infection with COVID-19 -AST 39, TBil 0.8, Alphos 58 on admission Plan: 1. Continue to be monitored in telemetry as an inpatient 2. RT to oxygen to keep saturations greater than 92% Continue incentive spirometry and [place] Dietitian consult regarding nutritional needs PT/OT to eval and treat and increase activity Prone positioning Continue Rocephin, Zithromax and dexamethasone 6mg po daily Redeliver 200mg iv x 1 and then 100mg iv daily x 4. Monitor electrolytes. replace and repeat it if necessary Continue to trend labs including D-dimer, CRP, and liver functions support services manager for discharge planning Monitor blood sugars as patient is on dexamethasone 6 mg daily D-dimer is negative. So I would not like to initiate anticoagulation. Instead I will put the patient on aspirin. 3. Intake and output. Repeat renal function in morning 4. Repeat platelets in the morning 5. Repeat liver function in morning 6. Patient does not have diabetes but I would like to put patient on insulin sliding scale since the patient is on dexamethasone. 7. DVT prophylaxis: Lovenox Deposition: Patient responds to treatment better than expected. I might be able to discharge him tomorrow.
[2020-11-25] MEDS: REMDESIVIR 100 MG in Sodium Chloride 0.9% 100 ML IV SCH (16:38)
[2020-11-25] MEDS: Melatonin 3 MG Tab PO SCH (21:19)
[2020-11-25] MEDS: cefTRIAXone 2 GM in Sodium Chloride 0.9% 100 ML IV SCH (21:19)
[2020-11-25] MEDS: Azithromycin 500 MG in Sodium Chloride 0.9% 250 ML IV SCH (22:05)
[2020-11-26] MEDS ORDERED: Albuterol 6.7 GM Inhaler INH PRN (08:48)
[2020-11-26] MEDS ORDERED: Albuterol 6.7 GM Inhaler INH ONE (08:50)
[2020-11-26] MEDS: Aspirin 81 MG Tab.EC PO SCH (09:29)
[2020-11-26] MEDS: Cholecalciferol (Vitamin D3) 5,000 UNIT Cap PO SCH (09:29)
[2020-11-26] MEDS: Zinc Sulfate 220 MG Cap PO SCH (09:29)
[2020-11-26] MEDS: Dexamethasone 4 MG Tab PO SCH (09:29)
[2020-11-26] MEDS: Enoxaparin 40 MG/0.4 ML Syringe SUBCUT SCH (09:32)
--- NOTE | 2020-11-26 12:31 | PCM.PN ---
- General Info Date of Service: 11/26/20 Admission Dx/Problem (Free Text): Admission Diagnosis/Problem Admission Diagnosis/Problem Hypoxia Subjective Update: Patient is a 29-year-old male without a significant the past medical history who presented to the ER with cough and shortness of breath. he has been having poor appetite, nausea, vomiting and malaise for about a week. Patient had a positive COVID-19 test on Sunday. Patient does not feel good today. He needs more oxygen last night and today Yesterday she was on room air. He is now on 4 L. WBC 4.47, platelets 152 CRP 4.2 MRSA screen negative Sputum Gram [id number] cocci in cluster, gram-positive cocci in chains. Culture pending - Review of Systems Systems Review Comment:: General: Reports: Malaise HEENT: Reports: No Symptoms Pulmonary: Reports: Shortness of Breath, Cough Cardiovascular: Reports: No Symptoms Gastrointestinal: Reports: Nausea, Vomiting Genitourinary: Reports: Other (Low urine output) Musculoskeletal: Reports: No Symptoms Skin: Reports: No Symptoms Psychiatric: Reports: No Symptoms Neurological: Reports: No Symptoms Hematologic/Lymphatic: Reports: No Symptoms Immunologic: Reports: No Symptoms - Patient Data Vitals - Most Recent: Last Vital Signs Temp 36.5 C 11/26/20 11:09 Pulse 81 11/26/20 11:09 Resp 20 11/26/20 11:09 BP 100/83 11/26/20 11:09 Pulse Ox 95 11/26/20 11:09 Weight - Most Recent: 94.801 kg I&O - Last 24 Hours: Intake & Output 11/25/20 11/26/20 11/26/20 22:59 06:59 14:59 Intake Total 1396 750 Balance 1396 750 Lab Results Last 24 Hours: Laboratory Results - last 24 hr 11/26/20 11/26/20 Range/Units 04:59 04:59 WBC 5.47 (4.23-9.07) K/mm3 RBC 5.13 (4.63-6.08) M/mm3 Hgb 14.8 (13.7-17.5) gm/dl Hct 43.7 (40.1-51.0) % MCV 85.2 (79.0-92.2) fl MCH 28.8 (25.7-32.2) pg MCHC 33.9 (32.2-35.5) g/dl RDW Std Deviation 38.5 (35.1-43.9) fL Plt Count 152 L (163-337) K/mm3 MPV 11.3 (9.4-12.3) fl Neut % (Auto) 76.0 H (34.0-67.9) % Lymph % (Auto) 14.3 L (21.8-53.1) % [place] % (Auto) 8.4 (5.3-12.2) % Eos % (Auto) 0 L (0.8-7.0) Baso % (Auto) 0.2 (0.1-1.2) % Neut # (Auto) 4.16 (1.78-5.38) K/mm3 Lymph # (Auto) 0.78 L (1.32-3.57) K/mm3 [place] # (Auto) 0.46 (0.30-0.82) K/mm3 Eos # (Auto) 0.00 L (0.04-0.54) K/mm3 Baso # (Auto) 0.01 (0.01-0.08) K/mm3 Sodium 143 (136-145) mEq/L Potassium 4.5 (3.5-5.1) mEq/L Chloride 106 (98-107) mEq/L Carbon Dioxide 28 (21-32) mEq/L Anion Gap 13.5 (5-15) BUN 18 (7-18) mg/dL Creatinine 0.9 (0.7-1.3) mg/dL Est Cr Clr Drug Dosing 111.19 mL/min Estimated GFR (MDRD) > 60 (>60) mL/min BUN/Creatinine Ratio 20.0 H (14-18) Glucose 137 H (70-99) mg/dL Calcium 7.5 L (8.5-10.1) mg/dL Total Bilirubin 0.3 (0.2-1.0) mg/dL AST 21 (15-37) U/L ALT 30 (16-63) U/L Alkaline Phosphatase 50 (46-116) U/L C-Reactive Protein 4.2 H* (<1.0) mg/dL Total Protein 6.4 (6.4-8.2) g/dl Albumin 2.9 L (3.4-5.0) g/dl Globulin 3.5 gm/dL Albumin/Globulin Ratio 0.8 L (1-2) Gamal Results Last 24 Hours: Microbiology 11/24/20 19:32 Gram Stain - Preliminary Sputum - Expectorated 11/24/20 14:37 Aerobic Blood Culture - Preliminary Blood - Venous - Lab Draw NO GROWTH AFTER 1 DAY Anaerobic Blood Culture - Preliminary NO GROWTH AFTER 1 DAY 11/24/20 14:30 Aerobic Blood Culture - Preliminary Blood - Venous NO GROWTH AFTER 1 DAY Anaerobic Blood Culture - Preliminary NO GROWTH AFTER 1 DAY Med Orders - Current: Current Medications Acetaminophen (Acetaminophen 325 Mg Tab) 650 mg PO Q6H PRN PRN Reason: Pain (Mild 1-3)/fever Albuterol (Albuterol 6.7 Gm Inhaler) 0 gm INH Q2H PRN PRN Reason: Shortness of Breath Last Admin: 11/26/20 08:54 Dose: 2 puff Documented by: Albuterol/Ipratropium (Albuterol/Ipratropium 3.0-0.5 Mg/3 Ml Neb Soln) 3 ml NEB Q4H PRN PRN Reason: Shortness Of Breath/wheezing Aspirin (Aspirin 81 Mg Tab.Ec) 81 mg PO DAILY [facility] Last Admin: 11/26/20 09:29 Dose: 81 mg Documented by: Cholecalciferol (Cholecalciferol (Vitamin D3) 5,000 Unit Cap) 5,000 unit PO DAILY [facility] Last Admin: 11/26/20 09:29 Dose: 5,000 unit Documented by: Dexamethasone (Dexamethasone 4 Mg Tab) 6 mg PO DAILY [facility] Last Admin: 11/26/20 09:29 Dose: 6 mg Documented by: Enoxaparin Sodium (Enoxaparin 40 Mg/0.4 Ml Syringe) 40 mg SUBCUT DAILY [facility] Last Admin: 11/26/20 09:32 Dose: 40 mg Documented by: Hydralazine HCl (Hydralazine 20 Mg/Ml Sdv) 10 mg IVPUSH Q4H PRN PRN Reason: Hypertension Promethazine HCl 12.5 mg/ (Sodium Chloride) 50.5 mls @ 100 mls/hr IV Q6H PRN PRN Reason: Nausea/Vomiting Remdesivir 100 mg/ Sodium (Chloride) 100 mls @ 100 mls/hr IV Q24H [facility] Stop: 11/28/20 18:29 Last Admin: 11/25/20 16:38 Dose: 100 mls/hr Documented by: Azithromycin 500 mg/ Sodium (Chloride) 250 mls @ 250 mls/hr IV Q24H [facility] Last Admin: 11/25/20 22:05 Dose: 250 mls/hr Documented by: Ceftriaxone Sodium 2 gm/ (Sodium Chloride) 100 mls @ 200 mls/hr IV Q24H [facility] Last Admin: 11/25/20 21:19 Dose: 200 mls/hr Documented by: Melatonin (Melatonin 3 Mg Tab) 3 mg PO BEDTIME [facility] Last Admin: 11/25/20 21:19 Dose: Not Given Documented by: Tramadol HCl (Tramadol 50 Mg Tab) 50 mg PO Q6H PRN PRN Reason: Pain (moderate 4-6) Zinc Sulfate (Zinc Sulfate 220 Mg Cap) 220 mg PO DAILY [facility] Last Admin: 11/26/20 09:29 Dose: 220 mg Documented by: Discontinued Medications Albuterol (Albuterol 6.7 Gm Inhaler) Confirm Administered Dose 6.7 gm INH .STK- MED ONE Stop: 11/26/20 08:51 Lactated Ringer's (Ringers, Lactated) 500 mls @ 500 mls/hr IV .BOLUS ONE Stop: 11/24/20 15:25 Last Infusion: 11/24/20 15:40 Dose: 75 mls/hr Documented by: Lactated Ringer's (Ringers, Lactated) 1,000 mls @ 75 mls/hr IV ASDIRECTED [facility] Potassium Chloride/Sodium Chloride (Normal Saline With 20 Meq Kcl) 1,000 mls @ 75 mls/hr IV ASDIRECTED [facility] Last Admin: 11/25/20 00:31 Dose: 75 mls/hr Documented by: Ceftriaxone Sodium 2 gm/ (Sodium Chloride) 100 mls @ 200 mls/hr IV Q24H [facility] Last Admin: 11/24/20 23:06 Dose: Not Given Documented by: Azithromycin 500 mg/ Sodium (Chloride) 250 mls @ 250 mls/hr IV Q24H [facility] Last Admin: 11/24/20 23:06 Dose: Not Given Documented by: Remdesivir 200 mg/ Sodium (Chloride) 250 mls @ 250 mls/hr IV ONETIME ONE Stop: 11/24/20 19:14 Last Admin: 11/24/20 18:28 Dose: 250 mls/hr Documented by: Calcium Gluconate 1 gm/ Sodium (Chloride) 60 mls @ 240 mls/hr IV ONETIME ONE Stop: 11/25/20 09:44 Last Admin: 11/25/20 10:20 Dose: 240 mls/hr Documented by: Morphine Sulfate (Morphine 2 Mg/Ml Syringe) 2 mg IVPUSH Q4H PRN PRN Reason: Pain (severe 7-10) Stop: 11/25/20 17:15 Potassium Chloride (Potassium Chloride 20 Meq Tab.Er) 40 meq PO ONETIME ONE Stop: 11/24/20 16:08 Last Admin: 11/24/20 16:16 Dose: 40 meq Documented by: - Exam Physical Findings Comments:: General: Alert, Oriented, Cooperative HEENT: Conjunctiva Clear, EOMI, Pupils Equal, Pupils Reactive Neck: Supple, +2 Carotid Pulse wo Bruit, Full Range of Motion Lungs: Crackles (Bibasilar) Cardiovascular: Regular Rate, Regular Rhythm, Normal S1, Normal S2 GI/Abdominal Exam: Normal Bowel Sounds, Soft, Non-Tender, No Organomegaly Back Exam: Other (Scoliosis) Extremities: Normal Inspection, Normal Range of Motion, Non-Tender, No Pedal Edema Skin: Warm, Dry, Intact Neurological: Strength Equal Bilateral, Normal Speech, Normal Tone, Sensation Intact Neuro Extensive - Mental Status: Alert, Oriented x3, Normal Mood/Affect Psychiatric: Normal Affect, Normal Mood - Patient Data Lab Results Last 24 hrs: Laboratory Results - last 24 hr 11/26/20 11/26/20 Range/Units 04:59 04:59 WBC 5.47 (4.23-9.07) K/mm3 RBC 5.13 (4.63-6.08) M/mm3 Hgb 14.8 (13.7-17.5) gm/dl Hct 43.7 (40.1-51.0) % MCV 85.2 (79.0-92.2) fl MCH 28.8 (25.7-32.2) pg MCHC 33.9 (32.2-35.5) g/dl RDW Std Deviation 38.5 (35.1-43.9) fL Plt Count 152 L (163-337) K/mm3 MPV 11.3 (9.4-12.3) fl Neut % (Auto) 76.0 H (34.0-67.9) % Lymph % (Auto) 14.3 L (21.8-53.1) % [place] % (Auto) 8.4 (5.3-12.2) % Eos % (Auto) 0 L (0.8-7.0) Baso % (Auto) 0.2 (0.1-1.2) % Neut # (Auto) 4.16 (1.78-5.38) K/mm3 Lymph # (Auto) 0.78 L (1.32-3.57) K/mm3 [place] # (Auto) 0.46 (0.30-0.82) K/mm3 Eos # (Auto) 0.00 L (0.04-0.54) K/mm3 Baso # (Auto) 0.01 (0.01-0.08) K/mm3 Sodium 143 (136-145) mEq/L Potassium 4.5 (3.5-5.1) mEq/L Chloride 106 (98-107) mEq/L Carbon Dioxide 28 (21-32) mEq/L Anion Gap 13.5 (5-15) BUN 18 (7-18) mg/dL Creatinine 0.9 (0.7-1.3) mg/dL Est Cr Clr Drug Dosing 111.19 mL/min Estimated GFR (MDRD) > 60 (>60) mL/min BUN/Creatinine Ratio 20.0 H (14-18) Glucose 137 H (70-99) mg/dL Calcium 7.5 L (8.5-10.1) mg/dL Total Bilirubin 0.3 (0.2-1.0) mg/dL AST 21 (15-37) U/L ALT 30 (16-63) U/L Alkaline Phosphatase 50 (46-116) U/L C-Reactive Protein 4.2 H* (<1.0) mg/dL Total Protein 6.4 (6.4-8.2) g/dl Albumin 2.9 L (3.4-5.0) g/dl Globulin 3.5 gm/dL Albumin/Globulin Ratio 0.8 L (1-2) Result Diagrams: 11/26/20 04:59 11/26/20 04:59 Gamal Results Last 24 hrs: Microbiology 11/24/20 19:32 Gram Stain - Preliminary Sputum - Expectorated 11/24/20 14:37 Aerobic Blood Culture - Preliminary Blood - Venous - Lab Draw NO GROWTH AFTER 1 DAY Anaerobic Blood Culture - Preliminary NO GROWTH AFTER 1 DAY 11/24/20 14:30 Aerobic Blood Culture - Preliminary Blood - Venous NO GROWTH AFTER 1 DAY Anaerobic Blood Culture - Preliminary NO GROWTH AFTER 1 DAY Sepsis Event Note - Evaluation Sepsis Screening Result: No Definite Risk - Focused Exam Vital Signs: Vital Signs Temp Pulse Resp BP Pulse Ox Pulse Ox 11/26/20 11:09 36.5 C 81 20 100/83 95 11/26/20 08:57 98 11/26/20 07:34 36.5 C 70 20 127/75 98 11/26/20 05:54 99 11/26/20 05:40 99 11/26/20 05:27 36.4 C 69 17 120/96 H 94 L - Problem List Review Problem List Initiated/Reviewed/Updated: Yes - My Orders Last 24 Hours: My Active Orders 11/25/20 17:30 Remdesivir 100 mg Sodium Chloride 0.9% [Normal Saline] 100 ml IV Q24H 11/27/20 05:00 C-REACTIVE PROTEIN [CHEM] DAILY CBC WITH AUTO DIFF [HEME] DAILY COMPREHENSIVE METABOLIC PN,CMP [CHEM] DAILY 11/28/20 05:00 C-REACTIVE PROTEIN [CHEM] DAILY CBC WITH AUTO DIFF [HEME] DAILY COMPREHENSIVE METABOLIC PN,CMP [CHEM] DAILY 11/29/20 05:00 C-REACTIVE PROTEIN [CHEM] DAILY CBC WITH AUTO DIFF [HEME] DAILY COMPREHENSIVE METABOLIC PN,CMP [CHEM] DAILY - Plan Plan:: Patient is a 29-year-old male without a significant the past medical history who presented to the ER with cough and shortness of breath. he has been having poor appetite, nausea, vomiting and malaise for about a week. Patient had a positive COVID-19 test on Sunday. Assessment: Acute hypoxic respiratory failure scoliosis -Etiology could be pneumonia. Restrictive ventilation due to scoliosis can contribute to hypoxia. -Pulse ox -Oxygen therapy, high flow/as needed to keep oxygen saturation greater than 92% Pneumonia, Covid 19 or CAP -CXR - patchy areas of increased density on both sides of the chest compatible with diffuse covid pneumonia -Covid 19 test positive on 11/22 -Symptoms started 1 week ago -Ferritin 1909, D-dimer negative 0.42, CRP 5.7 on admission. -Sputum Gram [id number] cocci in cluster, gram-positive cocci in chains. Culture pending -MRSA screen negative Dehydration -Low urine output on admission, improved and -Creatinine 1.2 on admission Thrombocytopenia -Etiology unknown -127 on admission -No evidence of bleeding Electrolytes imbalance -Potassium 3.2 on admission -Replace and repeat it Elevation of liver enzymes -Could be due to infection with COVID-19 -AST 39, TBil 0.8, Alphos 58 on admission Plan: 1. Continue to be monitored in telemetry as an inpatient 2. RT to oxygen to keep saturations greater than 92% Continue incentive spirometry and [place] Dietitian consult regarding nutritional needs PT/OT to eval and treat and increase activity Prone positioning Continue Rocephin, Zithromax and dexamethasone 6mg po daily Redeliver 200mg iv x 1 and then 100mg iv daily x 4. Monitor electrolytes. 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 So I would not like to initiate anticoagulation. Instead I will put the patient on aspirin. 3. Intake and output. Repeat renal function in morning 4. Repeat platelets in the morning 5. Repeat liver function in morning 6. Patient does not have diabetes but I would like to put patient on insulin sliding scale since the patient is on dexamethasone. 7. DVT prophylaxis: Lovenox Deposition: 1-2 more days.
[2020-11-26] MEDS: Codeine/guaiFENesin 10-100 MG/5 ML Syrup 5 ML Cup PO PRN ×2 (13:07→21:55)
[2020-11-26] MEDS: REMDESIVIR 100 MG in Sodium Chloride 0.9% 100 ML IV SCH (17:33)
[2020-11-26] MEDS: cefTRIAXone 2 GM in Sodium Chloride 0.9% 100 ML IV SCH (21:54)
[2020-11-26] MEDS: Azithromycin 500 MG in Sodium Chloride 0.9% 250 ML IV SCH (21:54)
[2020-11-26] MEDS: Melatonin 3 MG Tab PO SCH (21:55)
--- NOTE | 2020-11-27 08:23 | PCM.PN ---
- General Info Date of Service: 11/27/20 Admission Dx/Problem (Free Text): Admission Diagnosis/Problem Admission Diagnosis/Problem Hypoxia Subjective Update: In to see Rodney. He is sitting up in the chair and has been walking around the room. He has been utilizing incentive spirometry and Acapella. He reports that he feels much better. He was weaned off of oxygen today. Reports he had a rough day yesterday. Labs today show WBC of 8.18. Platelet 162,000. Hemoglobin 14.2. Sodium 144. Potassium 4.5. GFR greater than 60. Glucose 128. Calcium 7.3. CRP is 2.0. Albumin is 2.9. Vitamin D is pending. He is doing quite well. We will continue to monitor with hope of discharging in next 24 to 48 hours. Functional Status: Reports: Pain Controlled, Tolerating Diet, Ambulating, Urinating, Incentive Spirometry, Other (Acapella ). Denies: New Symptoms - Review of Systems General: Reports: No Symptoms. Denies: Fever, Weakness, Fatigue, Malaise, Chills HEENT: Reports: No Symptoms. Denies: Headaches, Sore Throat Pulmonary: Reports: No Symptoms. Denies: Shortness of Breath, Cough, Sputum, Wheezing Cardiovascular: Reports: No Symptoms. Denies: Chest Pain, Palpitations, Dyspnea on Exertion, Edema Gastrointestinal: Reports: Diarrhea. Denies: Abdominal Pain, Constipation, Nausea, Vomiting Genitourinary: Reports: No Symptoms. Denies: Pain Musculoskeletal: Reports: No Symptoms Skin: Reports: No Symptoms. Denies: Cyanosis Neurological: Reports: No Symptoms. Denies: Confusion, Numbness, Pre-Existing Deficit, Tingling, Difficulty Walking, Weakness, Gait Disturbance Psychiatric: Reports: No Symptoms - Patient Data Vitals - Most Recent: Last Vital Signs Temp 97.7 F 11/27/20 07:27 Pulse 57 L 11/27/20 07:27 Resp 16 11/27/20 07:27 BP 109/58 L 11/27/20 07:27 Pulse Ox 96 11/27/20 07:27 Weight - Most Recent: 211 lb 8 oz I&O - Last 24 Hours: Intake & Output 11/26/20 11/27/20 11/27/20 22:59 06:59 14:59 Intake Total 1520 1150 Output Total 1275 Balance 1520 -125 Lab Results Last 24 Hours: Laboratory Results - last 24 hr 11/27/20 11/27/20 Range/Units 04:42 04:42 WBC 8.18 (4.23-9.07) K/mm3 RBC 4.94 (4.63-6.08) M/mm3 Hgb 14.2 (13.7-17.5) gm/dl Hct 42.6 (40.1-51.0) % MCV 86.2 (79.0-92.2) fl MCH 28.7 (25.7-32.2) pg MCHC 33.3 (32.2-35.5) g/dl RDW Std Deviation 39.0 (35.1-43.9) fL Plt Count 162 L (163-337) K/mm3 MPV 11.0 (9.4-12.3) fl Neut % (Auto) 81.7 H (34.0-67.9) % Lymph % (Auto) 9.4 L (21.8-53.1) % Dukes % (Auto) 7.8 (5.3-12.2) % Eos % (Auto) 0 L (0.8-7.0) Baso % (Auto) 0.1 (0.1-1.2) % Neut # (Auto) 6.68 H (1.78-5.38) K/mm3 Lymph # (Auto) 0.77 L (1.32-3.57) K/mm3 Dukes # (Auto) 0.64 (0.30-0.82) K/mm3 Eos # (Auto) 0.00 L (0.04-0.54) K/mm3 Baso # (Auto) 0.01 (0.01-0.08) K/mm3 Manual Slide Review Abnormal smear Sodium 144 (136-145) mEq/L Potassium 4.5 (3.5-5.1) mEq/L Chloride 107 (98-107) mEq/L Carbon Dioxide 29 (21-32) mEq/L Anion Gap 12.5 (5-15) BUN 17 (7-18) mg/dL Creatinine 0.9 (0.7-1.3) mg/dL Est Cr Clr Drug Dosing 111.19 mL/min Estimated GFR (MDRD) > 60 (>60) mL/min BUN/Creatinine Ratio 18.9 H (14-18) Glucose 128 H (70-99) mg/dL Calcium 7.3 L (8.5-10.1) mg/dL Total Bilirubin 0.3 (0.2-1.0) mg/dL AST 19 (15-37) U/L ALT 27 (16-63) U/L Alkaline Phosphatase 48 (46-116) U/L C-Reactive Protein 2.0 H* (<1.0) mg/dL Total Protein 6.1 L (6.4-8.2) g/dl Albumin 2.9 L (3.4-5.0) g/dl Globulin 3.2 gm/dL Albumin/Globulin Ratio 0.9 L (1-2) Gamal Results Last 24 Hours: Microbiology 11/24/20 19:32 Gram Stain - Final Sputum - Expectorated Sputum Culture - Preliminary 11/24/20 14:37 Aerobic Blood Culture - Preliminary Blood - Venous - Lab Draw NO GROWTH AFTER 2 DAYS Anaerobic Blood Culture - Preliminary NO GROWTH AFTER 2 DAYS 11/24/20 14:30 Aerobic Blood Culture - Preliminary Blood - Venous NO GROWTH AFTER 2 DAYS Anaerobic Blood Culture - Preliminary NO GROWTH AFTER 2 DAYS Med Orders - Current: Current Medications Acetaminophen (Acetaminophen 325 Mg Tab) 650 mg PO Q6H PRN PRN Reason: Pain (Mild 1-3)/fever Albuterol (Albuterol 6.7 Gm Inhaler) 0 gm INH Q2H PRN PRN Reason: Shortness of Breath Last Admin: 11/26/20 08:54 Dose: 2 puff Documented by: Albuterol/Ipratropium (Albuterol/Ipratropium 3.0-0.5 Mg/3 Ml Neb Soln) 3 ml NEB Q4H PRN PRN Reason: Shortness Of Breath/wheezing Aspirin (Aspirin 81 Mg Tab.Ec) 81 mg PO DAILY [facility] Last Admin: 11/26/20 09:29 Dose: 81 mg Documented by: Cholecalciferol (Cholecalciferol (Vitamin D3) 5,000 Unit Cap) 5,000 unit PO DAILY [facility] Last Admin: 11/26/20 09:29 Dose: 5,000 unit Documented by: Dexamethasone (Dexamethasone 4 Mg Tab) 6 mg PO DAILY [facility] Last Admin: 11/26/20 09:29 Dose: 6 mg Documented by: Enoxaparin Sodium (Enoxaparin 40 Mg/0.4 Ml Syringe) 40 mg SUBCUT DAILY [facility] Last Admin: 11/26/20 09:32 Dose: 40 mg Documented by: Guaifenesin/Codeine Phosphate (Codeine/Guaifenesin 10-100 Mg/5 Ml Syrup 5 Ml Cup) 5 ml PO Q6H PRN PRN Reason: Cough Last Admin: 11/26/20 21:55 Dose: 5 ml Documented by: Hydralazine HCl (Hydralazine 20 Mg/Ml Sdv) 10 mg IVPUSH Q4H PRN PRN Reason: Hypertension Promethazine HCl 12.5 mg/ (Sodium Chloride) 50.5 mls @ 100 mls/hr IV Q6H PRN PRN Reason: Nausea/Vomiting Remdesivir 100 mg/ Sodium (Chloride) 100 mls @ 100 mls/hr IV Q24H [facility] Stop: 11/28/20 18:29 Last Admin: 11/26/20 17:33 Dose: 100 mls/hr Documented by: Azithromycin 500 mg/ Sodium (Chloride) 250 mls @ 250 mls/hr IV Q24H [facility] Last Admin: 11/26/20 21:54 Dose: 250 mls/hr Documented by: Ceftriaxone Sodium 2 gm/ (Sodium Chloride) 100 mls @ 200 mls/hr IV Q24H [facility] Last Admin: 11/26/20 21:54 Dose: 200 mls/hr Documented by: Melatonin (Melatonin 3 Mg Tab) 3 mg PO BEDTIME [facility] Last Admin: 11/26/20 21:55 Dose: Not Given Documented by: Tramadol HCl (Tramadol 50 Mg Tab) 50 mg PO Q6H PRN PRN Reason: Pain (moderate 4-6) Zinc Sulfate (Zinc Sulfate 220 Mg Cap) 220 mg PO DAILY [facility] Last Admin: 11/26/20 09:29 Dose: 220 mg Documented by: Discontinued Medications Albuterol (Albuterol 6.7 Gm Inhaler) Confirm Administered Dose 6.7 gm INH .STK- MED ONE Stop: 11/26/20 08:51 Last Admin: 11/26/20 14:39 Dose: Not Given Documented by: Lactated Ringer's (Ringers, Lactated) 500 mls @ 500 mls/hr IV .BOLUS ONE Stop: 11/24/20 15:25 Last Infusion: 11/24/20 15:40 Dose: 75 mls/hr Documented by: Lactated Ringer's (Ringers, Lactated) 1,000 mls @ 75 mls/hr IV ASDIRECTED [facility] Potassium Chloride/Sodium Chloride (Normal Saline With 20 Meq Kcl) 1,000 mls @ 75 mls/hr IV ASDIRECTED [facility] Last Admin: 11/25/20 00:31 Dose: 75 mls/hr Documented by: Ceftriaxone Sodium 2 gm/ (Sodium Chloride) 100 mls @ 200 mls/hr IV Q24H [facility] Last Admin: 11/24/20 23:06 Dose: Not Given Documented by: Azithromycin 500 mg/ Sodium (Chloride) 250 mls @ 250 mls/hr IV Q24H [facility] Last Admin: 11/24/20 23:06 Dose: Not Given Documented by: Remdesivir 200 mg/ Sodium (Chloride) 250 mls @ 250 mls/hr IV ONETIME ONE Stop: 11/24/20 19:14 Last Admin: 11/24/20 18:28 Dose: 250 mls/hr Documented by: Calcium Gluconate 1 gm/ Sodium (Chloride) 60 mls @ 240 mls/hr IV ONETIME ONE Stop: 11/25/20 09:44 Last Admin: 11/25/20 10:20 Dose: 240 mls/hr Documented by: Morphine Sulfate (Morphine 2 Mg/Ml Syringe) 2 mg IVPUSH Q4H PRN PRN Reason: Pain (severe 7-10) Stop: 11/25/20 17:15 Potassium Chloride (Potassium Chloride 20 Meq Tab.Er) 40 meq PO ONETIME ONE Stop: 11/24/20 16:08 Last Admin: 11/24/20 16:16 Dose: 40 meq Documented by: - Exam Quality Assessment: DVT Prophylaxis. No: Supplemental Oxygen, Urine Catheter General: Alert, Oriented, Cooperative, No Acute Distress HEENT: Pupils Equal, Pupils Reactive, Mucous Membr. Moist/[place] Neck: Supple, Trachea Midline Lungs: Normal Respiratory Effort, Decreased Breath Sounds. No: Rales, Wheezing Cardiovascular: Regular Rate, Regular Rhythm GI/Abdominal Exam: Normal Bowel Sounds, Soft, Non-Tender, No Distention (Male) Exam: Deferred Back Exam: Decreased Range of Motion (Secondary to scoliosis spinal fusion.), Other (Large surgical incision from prior scoliosis surgery.) Extremities: Normal Inspection, Normal Range of Motion, Non-Tender, No Pedal Edema, Normal Capillary Refill Peripheral Pulses: 2+: Radial (L), Radial (R), Dorsalis Pedis (L), Dorsalis Pedis (R) Skin: Warm, Dry, Intact Neurological: No New Focal Deficit Psy/Mental Status: Alert, Normal Affect, Normal Mood - Patient Data Lab Results Last 24 hrs: Laboratory Results - last 24 hr 11/27/20 11/27/20 Range/Units 04:42 04:42 WBC 8.18 (4.23-9.07) K/mm3 RBC 4.94 (4.63-6.08) M/mm3 Hgb 14.2 (13.7-17.5) gm/dl Hct 42.6 (40.1-51.0) % MCV 86.2 (79.0-92.2) fl MCH 28.7 (25.7-32.2) pg MCHC 33.3 (32.2-35.5) g/dl RDW Std Deviation 39.0 (35.1-43.9) fL Plt Count 162 L (163-337) K/mm3 MPV 11.0 (9.4-12.3) fl Neut % (Auto) 81.7 H (34.0-67.9) % Lymph % (Auto) 9.4 L (21.8-53.1) % Dukes % (Auto) 7.8 (5.3-12.2) % Eos % (Auto) 0 L (0.8-7.0) Baso % (Auto) 0.1 (0.1-1.2) % Neut # (Auto) 6.68 H (1.78-5.38) K/mm3 Lymph # (Auto) 0.77 L (1.32-3.57) K/mm3 Dukes # (Auto) 0.64 (0.30-0.82) K/mm3 Eos # (Auto) 0.00 L (0.04-0.54) K/mm3 Baso # (Auto) 0.01 (0.01-0.08) K/mm3 Manual Slide Review Abnormal smear Sodium 144 (136-145) mEq/L Potassium 4.5 (3.5-5.1) mEq/L Chloride 107 (98-107) mEq/L Carbon Dioxide 29 (21-32) mEq/L Anion Gap 12.5 (5-15) BUN 17 (7-18) mg/dL Creatinine 0.9 (0.7-1.3) mg/dL Est Cr Clr Drug Dosing 111.19 mL/min Estimated GFR (MDRD) > 60 (>60) mL/min BUN/Creatinine Ratio 18.9 H (14-18) Glucose 128 H (70-99) mg/dL Calcium 7.3 L (8.5-10.1) mg/dL Total Bilirubin 0.3 (0.2-1.0) mg/dL AST 19 (15-37) U/L ALT 27 (16-63) U/L Alkaline Phosphatase 48 (46-116) U/L C-Reactive Protein 2.0 H* (<1.0) mg/dL Total Protein 6.1 L (6.4-8.2) g/dl Albumin 2.9 L (3.4-5.0) g/dl Globulin 3.2 gm/dL Albumin/Globulin Ratio 0.9 L (1-2) Result Diagrams: 11/27/20 04:42 11/27/20 04:42 Gamal Results Last 24 hrs: Microbiology 11/24/20 19:32 Gram Stain - Final Sputum - Expectorated Sputum Culture - Preliminary 11/24/20 14:37 Aerobic Blood Culture - Preliminary Blood - Venous - Lab Draw NO GROWTH AFTER 2 DAYS Anaerobic Blood Culture - Preliminary NO GROWTH AFTER 2 DAYS 11/24/20 14:30 Aerobic Blood Culture - Preliminary Blood - Venous NO GROWTH AFTER 2 DAYS Anaerobic Blood Culture - Preliminary NO GROWTH AFTER 2 DAYS Sepsis Event Note - Evaluation Sepsis Screening Result: No Definite Risk - Focused Exam Vital Signs: Vital Signs Temp Pulse Pulse Resp BP Pulse Ox Pulse Ox 11/27/20 07:27 97.7 F 57 L 16 109/58 L 96 11/27/20 05:08 98.1 F 64 18 110/56 L 95 11/26/20 23:50 70 14 94 L 11/26/20 21:53 97.7 F 74 14 119/72 93 L 11/26/20 20:35 96 - Problem List & Annotations (1) History of spinal fusion for scoliosis SNOMED Code(s): 449148881 Code(s): Z98.1 - ARTHRODESIS STATUS; Z87.39 - PERSONAL HISTORY OF DISEASES OF THE MS SYS AND CONN TISS Status: Chronic Priority: Low Current Visit: No (2) COVID-19 SNOMED Code(s): 818994553 Code(s): U07.1 - COVID-19 Status: Acute Priority: High Current Visit: Yes (3) Hypoxia SNOMED Code(s): 234659645 Code(s): R09.02 - HYPOXEMIA Status: Resolved Priority: High Current Visit: Yes (4) Acute hypoxemic respiratory failure SNOMED Code(s): 375411198 Code(s): J96.01 - ACUTE RESPIRATORY FAILURE WITH HYPOXIA Status: Resolved Priority: High Current Visit: Yes (5) Dehydration SNOMED Code(s): 12215311 Code(s): E86.0 - DEHYDRATION Status: Resolved Priority: High Current Visit: Yes (6) Thrombocytopenia SNOMED Code(s): 341857211 Code(s): D69.6 - THROMBOCYTOPENIA, UNSPECIFIED Status: Acute Priority: Medium Current Visit: Yes (7) Hypokalemia SNOMED Code(s): 86895343 Code(s): E87.6 - HYPOKALEMIA Status: Resolved Priority: High Current Visit: Yes (8) Elevated AST (SGOT) SNOMED Code(s): 684558356 Code(s): R74.01 - ELEVATION OF LEVELS OF LIVER TRANSAMINASE LEVELS Status: Resolved Priority: Medium Current Visit: Yes - Problem List Review Problem List Initiated/Reviewed/Updated: Yes - My Orders Last 24 Hours: My Active Orders 11/26/20 08:48 Albuterol [Proventil HFA] See Dose Instructions INH Q2H PRN - Plan Plan:: Patient is a 29-year-old male without a significant the past medical history who presented to the ER with cough and shortness of breath. he has been having poor appetite, nausea, vomiting and malaise for about a week. Patient had a positive COVID-19 test on Sunday. Assessment: Acute hypoxic respiratory failure, scoliosis, Resolved -Etiology could be pneumonia. Restrictive ventilation due to scoliosis can contribute to hypoxia. -Pulse ox -Oxygen therapy, high flow/as needed to keep oxygen saturation greater than 92% Pneumonia, Covid 19 or CAP -CXR - patchy areas of increased density on both sides of the chest compatible with diffuse covid pneumonia -Covid 19 test positive on 11/22 -Symptoms started 1 week ago -Ferritin 1909, D-dimer negative 0.42, CRP 5.7 on admission. -Sputum Gram [id number]-[id number] cocci in cluster, gram-positive cocci in chains. Culture pending -MRSA screen negative Dehydration, Resolved -Low urine output on admission, improved -Creatinine 1.2 on admission Thrombocytopenia, Improving -Etiology unknown -127 on admission-->162 -No evidence of bleeding Electrolytes imbalance, Resolved -Potassium 3.2 on admission --> 4.5 -Replace and repeat it Elevation of liver enzymes, Resolved -Could be due to infection with COVID-19 -AST 39, TBil 0.8, Alphos 58 on admission Plan: 1. Continue to be monitored in telemetry as an inpatient 2. RT to oxygen to keep saturations with goal of 88-95% Continue incentive spirometry and Acapella Dietitian consult regarding nutritional needs PT/OT to eval and treat and increase activity Prone positioning Continue Rocephin x5 days and dexamethasone 6mg po daily x 10 days Completed 3 days of azithromycin Redeliver 200mg iv x 1 and then 100mg iv daily x 4. Monitor electrolytes. replace and repeat it if necessary D-dimer, CRP, and liver functions daily nursing surgical services director for discharge planning Monitor blood sugars as patient is on dexamethasone 6 mg daily D-dimer is negative. So I would not like to initiate anticoagulation. Instead I will put the patient on aspirin and prophylactic Lovenox. 3. Intake and output. Repeat renal function in morning 4. Repeat platelets in the morning 5. Repeat liver function in morning 6. Patient does not have diabetes but I would like to put patient on insulin sliding scale since the patient is on dexamethasone. 7. DVT prophylaxis: Lovenox Deposition: 1-2 more days. LOS >96 Hrs due to continued need for COVID-19 treatment.
[2020-11-27] MEDS: Zinc Sulfate 220 MG Cap PO SCH (10:08)
[2020-11-27] MEDS: Aspirin 81 MG Tab.EC PO SCH (10:08)
[2020-11-27] MEDS: Cholecalciferol (Vitamin D3) 5,000 UNIT Cap PO SCH (10:08)
[2020-11-27] MEDS: Dexamethasone 4 MG Tab PO SCH (10:08)
[2020-11-27] MEDS: Enoxaparin 40 MG/0.4 ML Syringe SUBCUT SCH (10:08)
[2020-11-27] MEDS: REMDESIVIR 100 MG in Sodium Chloride 0.9% 100 ML IV SCH (16:58)
[2020-11-27] MEDS: cefTRIAXone 2 GM in Sodium Chloride 0.9% 100 ML IV SCH (21:36)
[2020-11-27] MEDS: Melatonin 3 MG Tab PO SCH (21:36)
--- NOTE | 2020-11-28 08:10 | PCM.DCSUM1 ---
Discharge Summary - Hospital Course HPI Initial Comments: Patient is a 29-year-old male without a significant the past medical history who presented to the ER with cough and shortness of breath. he has been having poor appetite, nausea, vomiting and malaise for about a week. Patient had a positive COVID-19 test on Sunday. His had a positive COVID-19 tested recently. In the ER, he was found to have low oxygen desaturation 87 to 88%. he has a low urine output. Normal saline bolus of 500 cc was given in the ER. Chest x-ray was performed showing bilateral infiltrates compatible with the Covid pneumonia. Diagnosis: Stroke: No - Discharge Data Discharge Date: 11/28/20 (Admit date: 11/24/2020) Discharge Disposition: Home, Self-Care 01 Condition: Good - Referral to Home Health Primary Care Physician: PCP None - Discharge Diagnosis/Problem(s) (1) History of spinal fusion for scoliosis SNOMED Code(s): 726375425 ICD Code: Z98.1 - ARTHRODESIS STATUS; Z87.39 - PERSONAL HISTORY OF DISEASES OF THE MS SYS AND CONN TISS Status: Chronic Priority: Low Current Visit: No (2) COVID-19 SNOMED Code(s): 210776871 ICD Code: U07.1 - COVID-19 Status: Acute Priority: High Current Visit: Yes (3) Hypoxia SNOMED Code(s): 802419017 ICD Code: R09.02 - HYPOXEMIA Status: Resolved Priority: High Current Visit: Yes (4) Acute hypoxemic respiratory failure SNOMED Code(s): 852891484 ICD Code: J96.01 - ACUTE RESPIRATORY FAILURE WITH HYPOXIA Status: Resolved Priority: High Current Visit: Yes (5) Dehydration SNOMED Code(s): 97360760 ICD Code: E86.0 - DEHYDRATION Status: Resolved Priority: High Current Visit: Yes (6) Thrombocytopenia SNOMED Code(s): 840665475 ICD Code: D69.6 - THROMBOCYTOPENIA, UNSPECIFIED Status: Resolved Priority: Medium Current Visit: Yes (7) Hypokalemia SNOMED Code(s): 47182477 ICD Code: E87.6 - HYPOKALEMIA Status: Resolved Priority: High Current Visit: Yes (8) Elevated AST (SGOT) SNOMED Code(s): 500290004 ICD Code: R74.01 - ELEVATION OF LEVELS OF LIVER TRANSAMINASE LEVELS Status: Resolved Priority: Medium Current Visit: Yes - Patient Summary/Data Consults: Consultations 11/24/20 17:54 Respiratory Care Assess and Treatment [CONS] Routine Labs Pending at D/C: None Recommended Follow-up Testing/Procedures: Follow-up with primary care provider within 7-10 days of discharge, sooner if needed. -Recommend repeat CBC, CMP, Magnesium at follow-up Hospital Course: This is a 29-year-old male who presented to ED on 11/24/2020 with cough and shortness of breath. Reports he has been having accompanying anorexia, nausea, vomiting, and malaise for about a week. Reports he had a positive Covid test on 11/22/2020. His was also reportedly positive. In the ED he was noted to have low saturations in the upper 80s. He was started on remdesivir and subsequently admitted to the medical floor for management of his Covid 19 pneumonia. Chest x-ray was obtained showing increased density on both sides of the chest compatible with diffuse Covid pneumonia. Ferritin was elevated at 1909. CRP was 5.7 his D-dimer was very mildly elevated at 0.42. He was started on 40 mg prophylactic Lovenox and 81 mg aspirin. D-dimer did return to less than 0.19. Sputum culture was obtained showing normal alysia. MRSA screen was obtained and was negative. He was noted to have some mild acute kidney injury and dehydration on admission and was given IV fluids with resolution. Is also known to have thrombocytopenia on admission with a platelet of 127. This did resolve prior to leaving. Potassium was low on admission as well and this was supplemented with good response. He is noted to have a very mild elevation of his AST and this did resolve as well. He was given 5 days of remdesivir, 5 days of IV Rocephin, 3 days of azithromycin. He was started on zinc and vitamin D supplementation. Blood cultures remain negative. He was given daily 6 mg dexamethasone. At his worst he was requiring up to 6 L of oxygen by nasal cannula. He was successfully weaned off of oxygen prior to discharge. He was utilizing his incentive spirometer and Acapella and was instructed to continue this at discharge. He does carry a history of scoliosis with surgical fixation and this likely lead to some degree of restrictive ventilation. He was discharged home today. Who will be discharged on zinc and vitamin D supplementation. He was also given an as needed albuterol inhaler. No steroid or antibiotics will be sent on discharge. He was instructed to remain in isolation/quarantine for a total of 20 days from symptom onset. He was warned that he will likely be contacted by the state and they may give him further updates. Recommend follow-up with primary care provider within 7 to 10 days of discharge, sooner if needed. Recommend repeat CBC, CMP, and magnesium at that visit. Consider repeat chest x-ray. He had no prior home medications. Patient discharged home today. Given patient's low D-dimer and relatively low risk for clot no aspirin or other anticoagulants will be prescribed at discharge. - Patient Instructions Diet: Usual Diet as Tolerated Activity: As Tolerated Driving: Do Not Drive (Until feeling better. ) Showering/Bathing: May Shower Notify Provider of: Fever, Increased Pain, Nausea and/or Vomiting Other/Special Instructions: Follow-up with primary care provider within 7-10 days of discharge, sooner if needed. Continue to utilize your incentive spirometry (clear/blue tube you INHALE through and acapella (green tube you BLOW through) for 1-2 weeks or until symptoms resolve. Continue to isolate/quarantine for a total of 20 days from symptom onset. You will likely recieve a call from a case hardener frome the [facility]. Follow their directions. You completed antibiotic and steroid treatment while here. Nothing further will be prescribed. Some studies have shown a benefit for people on zinc an vitamin D supplementation with COVID-19. A prescription for this has been sent to your pharmacy. Stay active but do not over do it. Should symptoms return or worsen contact your primary care provider or return to the Emergency Department. - Discharge Plan *PRESCRIPTION DRUG MONITORING PROGRAM REVIEWED*: No *COPY OF PRESCRIPTION DRUG MONITORING REPORT IN PATIENT ALVAREZ: No Prescriptions/Med Rec: Albuterol [Proventil HFA] 2 puff INH Q2H PRN #1 inhaler PRN Reason: Shortness Of Breath Cholecalciferol (Vitamin D3) [Vitamin D3] 5,000 unit PO DAILY #20 cap Zinc Sulfate [Zincate] 220 mg PO DAILY #20 cap Home Medications: Home Meds . [No Known Home Meds] 11/24/20 [History] Albuterol [Proventil HFA] 2 puff INH Q2H PRN #1 inhaler 11/28/20 [Rx] Cholecalciferol (Vitamin D3) [Vitamin D3] 5,000 unit PO DAILY #20 cap 11/28/20 [Rx] Zinc Sulfate [Zincate] 220 mg PO DAILY #20 cap 11/28/20 [Rx] Oxygen Therapy Mode: Room Air Patient Handouts: Hypoxia, COVID-19, How to Use an Incentive Spirometer, Prevent the Spread of COVID-19 if You Are Sick - [facility] Forms: ED Department Discharge Referrals: Kiran Lopes MD [Physician] - 12/06/20 7:30 am (Please come 15 minutes prior to the appointment to register, bring insurance cards and photo ID. This is at [facility].) - Discharge Summary/Plan Comment DC Time >30 min.: Yes (45 mins ) - General Info Date of Service: 11/28/20 Admission Dx/Problem (Free Text: Admission Diagnosis/Problem Admission Diagnosis/Problem Hypoxia Functional Status: Reports: Pain Controlled, Tolerating Diet, Ambulating, Urinating, Incentive Spirometry, Other (Acapella ). Denies: New Symptoms - Review of Systems General: Reports: No Symptoms. Denies: Fever, Weakness, Fatigue, Malaise, Chills HEENT: Reports: No Symptoms. Denies: Headaches, Sore Throat Pulmonary: Reports: No Symptoms. Denies: Shortness of Breath, Cough Cardiovascular: Reports: No Symptoms. Denies: Chest Pain, Palpitations, Dyspnea on Exertion, Edema Gastrointestinal: Reports: Diarrhea. Denies: Abdominal Pain, Constipation, Decreased Appetite, Nausea, Vomiting Genitourinary: Reports: No Symptoms. Denies: Pain Musculoskeletal: Reports: No Symptoms Skin: Reports: No Symptoms. Denies: Cyanosis Neurological: Reports: No Symptoms. Denies: Confusion, Pre-Existing Deficit, Difficulty Walking, Weakness, Gait Disturbance Psychiatric: Reports: No Symptoms - Patient Data Vitals - Most Recent: Last Vital Signs Temp 97.5 F 11/28/20 07:42 Pulse 67 11/28/20 07:42 Resp 16 11/28/20 07:42 BP 106/68 11/28/20 07:42 Pulse Ox 91 L 11/28/20 07:42 Weight - Most Recent: 211 lb 1.6 oz I&O - Last 24 hours: Intake & Output 11/27/20 11/28/20 11/28/20 22:59 06:59 14:59 Intake Total 600 750 Balance 600 750 Lab Results - Last 24 hrs: Laboratory Results - last 24 hr 11/28/20 11/28/20 11/28/20 Range/Units 05:26 05:26 05:26 WBC 8.95 (4.23-9.07) K/mm3 RBC 5.06 (4.63-6.08) M/mm3 Hgb 14.4 (13.7-17.5) gm/dl Hct 43.1 (40.1-51.0) % MCV 85.2 (79.0-92.2) fl MCH 28.5 (25.7-32.2) pg MCHC 33.4 (32.2-35.5) g/dl RDW Std Deviation 37.8 (35.1-43.9) fL Plt Count 186 (163-337) K/mm3 MPV 11.2 (9.4-12.3) fl Neut % (Auto) 77.0 H (34.0-67.9) % Lymph % (Auto) 12.1 L (21.8-53.1) % [place] % (Auto) 8.2 (5.3-12.2) % Eos % (Auto) 0 L (0.8-7.0) Baso % (Auto) 0.2 (0.1-1.2) % Neut # (Auto) 6.90 H (1.78-5.38) K/mm3 Lymph # (Auto) 1.08 L (1.32-3.57) K/mm3 [place] # (Auto) 0.73 (0.30-0.82) K/mm3 Eos # (Auto) 0.00 L (0.04-0.54) K/mm3 Baso # (Auto) 0.02 (0.01-0.08) K/mm3 Manual Slide Review Abnormal smear D-Dimer, Quantitative < 0.19 L (0.19-0.50) mg/L Sodium 143 (136-145) mEq/L Potassium 4.1 (3.5-5.1) mEq/L Chloride 107 (98-107) mEq/L Carbon Dioxide 27 (21-32) mEq/L Anion Gap 13.1 (5-15) BUN 16 (7-18) mg/dL Creatinine 0.9 (0.7-1.3) mg/dL Est Cr Clr Drug Dosing 111.19 mL/min Estimated GFR (MDRD) > 60 (>60) mL/min BUN/Creatinine Ratio 17.8 (14-18) Glucose 117 H (70-99) mg/dL Calcium 7.3 L (8.5-10.1) mg/dL Total Bilirubin 0.4 (0.2-1.0) mg/dL AST 21 (15-37) U/L ALT 37 (16-63) U/L Alkaline Phosphatase 50 (46-116) U/L C-Reactive Protein 1.2 H* (<1.0) mg/dL Total Protein 6.0 L (6.4-8.2) g/dl Albumin 2.8 L (3.4-5.0) g/dl Globulin 3.2 gm/dL Albumin/Globulin Ratio 0.9 L (1-2) BOAZ Results - Last 24 hrs: Microbiology 11/24/20 14:37 Aerobic Blood Culture - Preliminary Blood - Venous - Lab Draw NO GROWTH AFTER 3 DAYS Anaerobic Blood Culture - Preliminary NO GROWTH AFTER 3 DAYS 11/24/20 14:30 Aerobic Blood Culture - Preliminary Blood - Venous NO GROWTH AFTER 3 DAYS Anaerobic Blood Culture - Preliminary NO GROWTH AFTER 3 DAYS 11/24/20 19:32 Gram Stain - Final Sputum - Expectorated Sputum Culture - Final Normal Alysia Med Orders - Current: Current Medications Acetaminophen (Acetaminophen 325 Mg Tab) 650 mg PO Q6H PRN PRN Reason: Pain (Mild 1-3)/fever Albuterol (Albuterol 6.7 Gm Inhaler) 0 gm INH Q2H PRN PRN Reason: Shortness of Breath Last Admin: 11/26/20 08:54 Dose: 2 puff Documented by: Albuterol/Ipratropium (Albuterol/Ipratropium 3.0-0.5 Mg/3 Ml Neb Soln) 3 ml NEB Q4H PRN PRN Reason: Shortness Of Breath/wheezing Aspirin (Aspirin 81 Mg Tab.Ec) 81 mg PO DAILY [facility] Last Admin: 11/27/20 10:08 Dose: 81 mg Documented by: Cholecalciferol (Cholecalciferol (Vitamin D3) 5,000 Unit Cap) 5,000 unit PO DAILY [facility] Last Admin: 11/27/20 10:08 Dose: 5,000 unit Documented by: Dexamethasone (Dexamethasone 4 Mg Tab) 6 mg PO DAILY [facility] Stop: 12/03/20 09:01 Last Admin: 11/27/20 10:08 Dose: 6 mg Documented by: Enoxaparin Sodium (Enoxaparin 40 Mg/0.4 Ml Syringe) 40 mg SUBCUT DAILY [facility] Last Admin: 11/27/20 10:08 Dose: 40 mg Documented by: Guaifenesin/Codeine Phosphate (Codeine/Guaifenesin 10-100 Mg/5 Ml Syrup 5 Ml Cup) 5 ml PO Q6H PRN PRN Reason: Cough Last Admin: 11/26/20 21:55 Dose: 5 ml Documented by: Hydralazine HCl (Hydralazine 20 Mg/Ml Sdv) 10 mg IVPUSH Q4H PRN PRN Reason: Hypertension Promethazine HCl 12.5 mg/ (Sodium Chloride) 50.5 mls @ 100 mls/hr IV Q6H PRN PRN Reason: Nausea/Vomiting Ceftriaxone Sodium 2 gm/ (Sodium Chloride) 100 mls @ 200 mls/hr IV ONETIME ONE Stop: 11/28/20 08:44 Remdesivir 100 mg/ Sodium (Chloride) 100 mls @ 100 mls/hr IV ONETIME ONE Stop: 11/28/20 09:14 Melatonin (Melatonin 3 Mg Tab) 3 mg PO BEDTIME [facility] Last Admin: 11/27/20 21:36 Dose: Not Given Documented by: Tramadol HCl (Tramadol 50 Mg Tab) 50 mg PO Q6H PRN PRN Reason: Pain (moderate 4-6) Zinc Sulfate (Zinc Sulfate 220 Mg Cap) 220 mg PO DAILY [facility] Last Admin: 11/27/20 10:08 Dose: 220 mg Documented by: Discontinued Medications Albuterol (Albuterol 6.7 Gm Inhaler) Confirm Administered Dose 6.7 gm INH .STK- MED ONE Stop: 11/26/20 08:51 Last Admin: 11/26/20 14:39 Dose: Not Given Documented by: Lactated Ringer's (Ringers, Lactated) 500 mls @ 500 mls/hr IV .BOLUS ONE Stop: 11/24/20 15:25 Last Infusion: 11/24/20 15:40 Dose: 75 mls/hr Documented by: Lactated Ringer's (Ringers, Lactated) 1,000 mls @ 75 mls/hr IV ASDIRECTED [facility] Remdesivir 100 mg/ Sodium (Chloride) 100 mls @ 100 mls/hr IV Q24H [facility] Stop: 11/28/20 18:29 Last Admin: 11/27/20 16:58 Dose: 100 mls/hr Documented by: Potassium Chloride/Sodium Chloride (Normal Saline With 20 Meq Kcl) 1,000 mls @ 75 mls/hr IV ASDIRECTED [facility] Last Admin: 11/25/20 00:31 Dose: 75 mls/hr Documented by: Ceftriaxone Sodium 2 gm/ (Sodium Chloride) 100 mls @ 200 mls/hr IV Q24H [facility] Last Admin: 11/24/20 23:06 Dose: Not Given Documented by: Azithromycin 500 mg/ Sodium (Chloride) 250 mls @ 250 mls/hr IV Q24H [facility] Last Admin: 11/24/20 23:06 Dose: Not Given Documented by: Remdesivir 200 mg/ Sodium (Chloride) 250 mls @ 250 mls/hr IV ONETIME ONE Stop: 11/24/20 19:14 Last Admin: 11/24/20 18:28 Dose: 250 mls/hr Documented by: Azithromycin 500 mg/ Sodium (Chloride) 250 mls @ 250 mls/hr IV Q24H [facility] Last Admin: 11/26/20 21:54 Dose: 250 mls/hr Documented by: Ceftriaxone Sodium 2 gm/ (Sodium Chloride) 100 mls @ 200 mls/hr IV Q24H [facility] Stop: 11/28/20 21:29 Last Admin: 11/27/20 21:36 Dose: 200 mls/hr Documented by: Calcium Gluconate 1 gm/ Sodium (Chloride) 60 mls @ 240 mls/hr IV ONETIME ONE Stop: 11/25/20 09:44 Last Admin: 11/25/20 10:20 Dose: 240 mls/hr Documented by: Morphine Sulfate (Morphine 2 Mg/Ml Syringe) 2 mg IVPUSH Q4H PRN PRN Reason: Pain (severe 7-10) Stop: 11/25/20 17:15 Potassium Chloride (Potassium Chloride 20 Meq Tab.Er) 40 meq PO ONETIME ONE Stop: 11/24/20 16:08 Last Admin: 05/12/21 16:16 Dose: 40 meq Documented by: - Exam Quality Assessment: Reports: DVT Prophylaxis. Denies: Supplemental Oxygen, Urine Catheter General: Reports: Alert, Oriented, Cooperative, No Acute Distress HEENT: Reports: Pupils Equal, Pupils Reactive, Mucous Membr. Moist/[place] Neck: Reports: Supple, Trachea Midline Lungs: Reports: Normal Respiratory Effort, Decreased Breath Sounds Cardiovascular: Reports: Regular Rate, Regular Rhythm GI/Abdominal Exam: Normal Bowel Sounds, Soft, Non-Tender, No Distention (Male) Exam: Deferred Rectal (Males) Exam: Deferred Back Exam: Reports: Full Range of Motion, Other (Large healed midline scar from prior scoliosis repair. ) Extremities: Normal Inspection, Normal Range of Motion, Non-Tender, No Pedal Edema, Normal Capillary Refill Skin: Reports: Warm, Dry, Intact Neurological: Reports: No New Focal Deficit Psy/Mental Status: Reports: Alert, Normal Affect, Normal Mood
[2020-11-28] MEDS ORDERED: REMDESIVIR 100 MG in Sodium Chloride 0.9% 100 ML IV ONE ×2 (08:15→12:00)
[2020-11-28] MEDS ORDERED: cefTRIAXone 2 GM in Sodium Chloride 0.9% 100 ML IV ONE ×2 (08:15→12:00)
[2020-11-28] MEDS: Dexamethasone 4 MG Tab PO SCH (09:07)
[2020-11-28] MEDS: Zinc Sulfate 220 MG Cap PO SCH (09:07)
[2020-11-28] MEDS: Cholecalciferol (Vitamin D3) 5,000 UNIT Cap PO SCH (09:07)
[2020-11-28] MEDS: Aspirin 81 MG Tab.EC PO SCH (09:07)
[2020-11-28] MEDS: Enoxaparin 40 MG/0.4 ML Syringe SUBCUT SCH (09:08)
== END 2020-11-28 13:06 | disposition home or self-care (01) | DRG 137 ==
LOC: JD.ED 13:40 → JD.MS 16:42
PROVIDERS: ADMIT Internal Medicine; ATTEND Internal Medicine
PROC: XW033E5 Introduction of Remdesivir Anti-infective into Peripheral Vein, Percutaneous Approach, New Technology Group 5 (ICD-10-PCS; principal; 2020-11-24)
DX: U07.1 COVID-19 (principal); J12.82 Pneumonia due to coronavirus disease 2019; J96.01 Acute respiratory failure with hypoxia; E86.0 Dehydration; D69.6 Thrombocytopenia, unspecified; E87.6 Hypokalemia; R74.01 Elevation of levels of liver transaminase levels; N17.9 Acute kidney failure, unspecified; M41.9 Scoliosis, unspecified; H54.7 Unspecified visual loss; Z79.899 Other long term (current) drug therapy; Z98.1 Arthrodesis status; Z87.442 Personal history of urinary calculi; Z98.890 Other specified postprocedural states
CPT/HCPCS: 36415; 71045; 71045-26; 80053; 82306; 82728; 83605; 83735; 84100; 85007; 85025; 85027; 85379; 86140; 87040; 87070; 87205; 87641; 94640; 94667; 94668; 94761; 94762; 99222; 99233; 99239; 99284; 99285-25; A9270-GY; J0456; J0610; J0696; J1650; J3480; J7050; J7120; J8540